=== PATIENT | male | born 1955 | race Caucasian/White ===

== ENCOUNTER 2017-11-27 13:43 | Inpatient (IN) | payer MEDICARE, MEDICAID ==
[2017-11-27 14:44] LABS: ADD MAN DIFF? NO
[2017-11-27 14:46] LABS: ABNORMAL IP MESSAGE 1; EOSINOPHILS % 4.6 % (0.0-7.0); MONOCYTE # 0.3 10^3/ul (0.3-0.9); POSITIVE DIFF @See below
[2017-11-27 14:52] LABS: BASOPHILS % 0.4 % (0.0-2.0); EOSINOPHILS # 0.2 10^3/ul (0.0-0.5); HEMATOCRIT 19.5 % (42.0-52.0); LYMPHOCYTES % 21.5 % (15.0-51.0); MEAN CORPUSCULAR HEMOGLOBIN 30.6 pg (29.0-33.0); MEAN CORPUSCULAR HGB CONC 32.8 g/dl (32.0-37.0); MEAN CORPUSCULAR VOLUME 93.3 fl (82.0-101.0); MEAN PLATELET VOLUME 9.3 fl (7.4-10.4); MONOCYTES % 6.9 % (0.0-11.0); NEUTROPHIL # 3.2 10^3/ul (1.6-7.5); NEUTROPHILS % 66.4 % (39.0-77.0); PLATELET COUNT 187 10^3/UL (140-415); RED BLOOD COUNT 2.09 10^6/ul (4.70-6.10); RED CELL DISTRIBUTION WIDTH 14.2 % (11.5-14.5)
[2017-11-27 14:52] LABS: WHITE BLOOD COUNT 4.8 10^3/ul (4.8-10.8)
[2017-11-27 14:56] LABS: HEMOGLOBIN 6.4 g/dl (14.0-18.0); PATH REVIEW? YES
[2017-11-27 15:19] LABS: INR 1.18; PROTIME 15.2 Sec (11.9-14.9); PT RATIO 1.2
[2017-11-27 15:20] LABS: PARTIAL THROMBOPLASTIN TIME 38.3 Sec (25.0-35.0)
[2017-11-27 15:21] LABS: ALANINE AMINOTRANSFERASE 29 IU/L (13-69); ALBUMIN 3.3 g/dl (3.3-4.9); ALBUMIN/GLOBULIN RATIO 1.06; ALKALINE PHOSPHATASE 67 IU/L (42-121); ANION GAP 23 (8-16); ASPARTATE AMINO TRANSFERASE 19 IU/L (15-46); BLOOD UREA NITROGEN 110 mg/dl (7-20); CALCIUM 6.1 mg/dl (8.4-10.2); CARBON DIOXIDE 11 mmol/L (21-31); CHLORIDE 115 mmol/L (97-110); GLUCOSE 96 mg/dl (70-220); PHOSPHORUS 10.8 mg/dl (2.5-4.9); POTASSIUM 4.6 mmol/L (3.5-5.1); SODIUM 144 mmol/L (135-144); TOTAL PROTEIN 6.4 g/dl (6.1-8.1)
[2017-11-27 15:31] LABS: CREATININE 14.85 mg/dl (0.61-1.24); TROPONIN-I 0.049 ng/ml (0.00-0.12)
[2017-11-27 15:45] LABS: B-TYPE NATRIURETIC PEPTIDE 166000 PG/ML (0-125)
[2017-11-27] MEDS ORDERED: MAGNESIUM HYDROXIDE 30ML CUP PO (17:00)
[2017-11-27] MEDS ORDERED: NACL 0.9% 3 ML SYG IV (17:00)
[2017-11-27] MEDS ORDERED: NITROGLYCERIN (SL) 0.4 MG TAB SL (17:00)
[2017-11-27] MEDS ORDERED: NA PHOSPHATE/BIPHOS 133 ML ENEMA PR (17:00)
[2017-11-27] MEDS ORDERED: ALBUTEROL/IPRATROPIUM (NEB) 3 ML AMP HHN (17:00)
[2017-11-27] MEDS ORDERED: LORAZEPAM 2 MG INJ IV (17:00)
[2017-11-27] MEDS ORDERED: ACETAMINOPHEN 325 MG TAB PO (17:00)
[2017-11-27] MEDS ORDERED: morphine 2 MG INJ IV (17:00)
[2017-11-27] MEDS ORDERED: HYDROCODONE/APAP (5/325) TAB PO (17:00)
[2017-11-27 17:11] LABS: INR 1.16; PT RATIO 1.2
[2017-11-27 17:12] LABS: PARTIAL THROMBOPLASTIN TIME 38.2 Sec (25.0-35.0)
[2017-11-27 17:21] LABS: ANISOCYTOSIS 1+ (0-0); BASOPHILS % (M) 2 % (0-2); BURR CELLS 1+ (0-0); EOSINOPHILS % (M) 7 % (0-7); GIANT THROMBO% (M) 1 % (0-0); LYMPHOCYTES #M 0.7 10^3/ul (0.8-2.9); LYMPHOCYTES % (M) 15 % (15-51); MICROCYTOSIS 1+ (0-0); MONOCYTE #M 0.1 10^3/ul (0.3-0.9); MONOCYTES % (M) 4 % (0-11); PLATELET ESTIMATE NORMAL; POIKILOCYTOSIS 3+ (0-0); SEGMENTED NEUTROPHILS (M) % 72 % (39-77); SMUDGE%M 1 % (0-0)
[2017-11-27 17:33] LABS: IMMEDIATE SPIN CROSSMATCH 1 5
[2017-11-27 17:55] LABS: FREE T4 (FREE THYROXINE) 1.07 ng/dl (0.78-2.44)
[2017-11-27] MEDS: SEVELAMER CARBONATE 0.8 GM PKT PO (18:00)
[2017-11-27 18:34] LABS: IRON 52 ug/dl (35-150)
[2017-11-27 18:44] LABS: % IRON SATURATION 26 % SAT (22-52); TOTAL IRON BINDING CAPACITY 197 ug/dl (241-421)
[2017-11-27] MEDS ORDERED: DEXTROSE 50% 50 ML SYRINGE IV ×2 (19:00)
[2017-11-27] MEDS ORDERED: GLUCOSE GEL 15 GRAM TUBE BUCCAL (19:00)
[2017-11-27] MEDS ORDERED: GLUCAGON 1 MG INJ IM (19:00)
[2017-11-27] MEDS ORDERED: GLUCOSE GEL 15 GRAM TUBE PO ×2 (19:00)
[2017-11-27] MEDS: hydrALAzine 20 MG INJ IV (19:20)
[2017-11-27] MEDS ORDERED: HEPARIN 5,000 UNIT/0.5 ML VIAL SC (21:00)
[2017-11-27] MEDS: INSULIN ASPART [NOVOLOG] 3 ML PEN SC (21:00)
[2017-11-27 23:10] LABS: AADO2 Arterial 10.5 mmHg (7.0-24.0); Allen Test ACCEPTAB; Arterial Base Excess -16.6 mmol/L (-3.0-3); Arterial Blood Gas Oxygen Sat 95.9 mmHG (95.0-98.0); Arterial COHb 0.2 % (0.0-3.0); Arterial Fraction of Oxyhgb 94.9 % (93.0-99.0); Arterial MetHb 0.8 % (0.0-1.5); Arterial Total Hemglobin 7.4 g/dl (12.0-18.0); MODE ROOM AIR; Site Right Radial
[2017-11-28] MEDS: INSULIN ASPART [NOVOLOG] 3 ML PEN SC ×6 (01:00→23:01)
[2017-11-28] MEDS ORDERED: ACCU-CHEK XX (02:00)
[2017-11-28] MEDS: PANTOPRAZOLE (EC) 40 MG TAB PO (05:21)
[2017-11-28 06:11] LABS: ADD MAN DIFF? NO
[2017-11-28 06:16] LABS: BASOPHILS % 0.9 % (0.0-2.0); EOSINOPHILS # 0.3 10^3/ul (0.0-0.5); EOSINOPHILS % 6.8 % (0.0-7.0); HEMOGLOBIN 7.1 g/dl (14.0-18.0); LYMPHOCYTES # 0.9 10^3/ul (0.8-2.9); LYMPHOCYTES % 20.5 % (15.0-51.0); MEAN CORPUSCULAR HGB CONC 33.8 g/dl (32.0-37.0); MEAN CORPUSCULAR VOLUME 91.7 fl (82.0-101.0); MEAN PLATELET VOLUME 9.1 fl (7.4-10.4); MONOCYTE # 0.4 10^3/ul (0.3-0.9); MONOCYTES % 7.9 % (0.0-11.0); NEUTROPHIL # 2.9 10^3/ul (1.6-7.5); NEUTROPHILS % 63.5 % (39.0-77.0); PLATELET COUNT 169 10^3/UL (140-415); RED BLOOD COUNT 2.29 10^6/ul (4.70-6.10); RED CELL DISTRIBUTION WIDTH 14.5 % (11.5-14.5)
[2017-11-28 06:16] LABS: WHITE BLOOD COUNT 4.6 10^3/ul (4.8-10.8)
[2017-11-28 06:39] LABS: CHOLESTEROL 109 mg/dl (100-200)
[2017-11-28 06:39] LABS: ANION GAP 24 (8-16); BLOOD UREA NITROGEN 110 mg/dl (7-20); CALCIUM 6.2 mg/dl (8.4-10.2); CHLORIDE 117 mmol/L (97-110); CHOL/HDL RATIO 2.5 RATIO; GLUCOSE 77 mg/dl (70-220); HDL CHOLESTEROL 42 mg/dl (30-78); LDL CHOLESTEROL,CALCULATED 37 mg/dl; MAGNESIUM 1.9 mg/dl (1.7-2.5); PHOSPHORUS 11.3 mg/dl (2.5-4.9); POTASSIUM 4.6 mmol/L (3.5-5.1); SODIUM 145 mmol/L (135-144); TRIGLYCERIDES 149 mg/dl (0-149)
[2017-11-28 06:43] LABS: CARBON DIOXIDE 9 mmol/L (21-31)
[2017-11-28] MEDS ORDERED: NA BICARBONATE 8.4% 50 ML SYG (07:04)
[2017-11-28 07:09] LABS: HEMOGLOBIN A1C 5.5 % (0-5.9)
[2017-11-28 07:14] LABS: COMPLEMENT C3 72 mg/dl (88-165); COMPLEMENT C4 24 mg/dl (14-44)
[2017-11-28] MEDS: NA BICARBONATE 8.4% 50 ML SYG IV (07:16)
[2017-11-28 07:37] LABS: HEPATITIS B SURFACE ANTIGEN NEGATIVE (NEGATIVE)
[2017-11-28 07:54] LABS: HEPATITIS C VIRAL ANTIBODY NEGATIVE (NEGATIVE)
[2017-11-28] MEDS: CEFAZOLIN 1 GM/50 ML (PMX) 50 ML IVPB (09:10)
[2017-11-28] MEDS: SOD CHLORIDE 0.9% 500 ML (09:12)
[2017-11-28] MEDS: LIDOCAINE 1% (MDV) 10 ML INJ (09:15)
[2017-11-28] MEDS: HEPARIN 1000 UNITS/ML 10 ML INJ (09:15)
[2017-11-28] MEDS: NIFEdipine (XL) 30 MG TAB PO (17:30)
[2017-11-28] MEDS ORDERED: NIFEdipine (XL) 30 MG TAB PO (17:30)
[2017-11-28] MEDS: hydrALAzine 20 MG INJ IV (18:21)
[2017-11-28] MEDS: HEPARIN 1000 UNITS/ML 10 ML INJ CATHETER (18:34)
[2017-11-28] MEDS: SEVELAMER CARBONATE 0.8 GM PKT PO ×3 (22:47→22:48)
[2017-11-28] MEDS: CALCITRIOL 0.25 MCG CAP PO (22:47)
[2017-11-28 23:38] LABS: ADD UMIC YES; UR ASCORBIC ACID NEGATIVE (NEGATIVE); UR BACTERIA FEW /HPF (NONE SEEN); UR BILIRUBIN (Dip) NEGATIVE (NEGATIVE); UR BLOOD (Dip) 1+ mg/dL (NEGATIVE); UR CLARITY CLEAR (CLEAR); UR COLOR STRAW (YELLOW); UR GLUCOSE (Dip) 1+ mg/dL (NEGATIVE); UR KETONES (Dip) TRACE mg/dL (NEGATIVE); UR LEUKOCYTE ESTERASE (Dip) NEGATIVE Leu/ul (NEGATIVE); UR NITRITE (Dip) NEGATIVE (NEGATIVE); UR RBC 1 /HPF (0-5); UR TOTAL PROTEIN (Dip) 3+ mg/dl (NEGATIVE); UR UROBILINOGEN (Dip) NEGATIVE (NEGATIVE); UR WBC 5 /HPF (0-5)
[2017-11-28 23:41] LABS: CREATININE,URINE RANDOM 63.33 mg/dl (20-370)
[2017-11-28 23:57] LABS: PROTEIN/CREAT RATIO 8.95 RATIO
[2017-11-29] MEDS: INSULIN ASPART [NOVOLOG] 3 ML PEN SC ×6 (02:11→20:49)
[2017-11-29] MEDS ORDERED: GLUCOSE GEL 15 GRAM TUBE PO ×2 (05:30)
[2017-11-29] MEDS ORDERED: DEXTROSE 50% 50 ML SYRINGE IV ×2 (05:30)
[2017-11-29] MEDS ORDERED: GLUCAGON 1 MG INJ IM (05:30)
[2017-11-29] MEDS ORDERED: GLUCOSE GEL 15 GRAM TUBE BUCCAL (05:30)
[2017-11-29] MEDS: PANTOPRAZOLE (EC) 40 MG TAB PO (06:38)
[2017-11-29] MEDS: ONDANSETRON 4 MG INJ IV (06:44)
[2017-11-29 08:27] LABS: ADD MAN DIFF? NO
[2017-11-29 08:29] LABS: BASOPHILS % 0.7 % (0.0-2.0); EOSINOPHILS # 0.1 10^3/ul (0.0-0.5); EOSINOPHILS % 3.3 % (0.0-7.0); HEMATOCRIT 22.9 % (42.0-52.0); HEMOGLOBIN 7.8 g/dl (14.0-18.0); LYMPHOCYTES # 0.8 10^3/ul (0.8-2.9); LYMPHOCYTES % 19.1 % (15.0-51.0); MEAN CORPUSCULAR HEMOGLOBIN 30.2 pg (29.0-33.0); MEAN CORPUSCULAR HGB CONC 34.1 g/dl (32.0-37.0); MEAN CORPUSCULAR VOLUME 88.8 fl (82.0-101.0); MEAN PLATELET VOLUME 9.8 fl (7.4-10.4); MONOCYTE # 0.4 10^3/ul (0.3-0.9); MONOCYTES % 9.6 % (0.0-11.0); NEUTROPHIL # 2.9 10^3/ul (1.6-7.5); NEUTROPHILS % 67.1 % (39.0-77.0); PLATELET COUNT 164 10^3/UL (140-415); RED BLOOD COUNT 2.58 10^6/ul (4.70-6.10); RED CELL DISTRIBUTION WIDTH 14.9 % (11.5-14.5)
[2017-11-29 08:29] LABS: WHITE BLOOD COUNT 4.3 10^3/ul (4.8-10.8)
[2017-11-29] MEDS: CALCITRIOL 0.25 MCG CAP PO (08:32)
[2017-11-29] MEDS: SEVELAMER CARBONATE 0.8 GM PKT PO ×3 (08:32→18:12)
[2017-11-29] MEDS: VALSARTAN 160 MG TAB PO (08:33)
[2017-11-29] MEDS: NIFEdipine (XL) 30 MG TAB PO ×2 (08:33→20:45)
[2017-11-29 08:53] LABS: ANION GAP 19 (8-16); BLOOD UREA NITROGEN 68 mg/dl (7-20); CALCIUM 6.9 mg/dl (8.4-10.2); CARBON DIOXIDE 20 mmol/L (21-31); CHLORIDE 111 mmol/L (97-110); CREATININE 9.79 mg/dl (0.61-1.24); GLUCOSE 84 mg/dl (70-220); POTASSIUM 4.1 mmol/L (3.5-5.1); SODIUM 146 mmol/L (135-144)
[2017-11-29 12:17] LABS: MYELOPEROXIDASE ANTIBODY <1.0 AI; PROTEINASE-3 ANTIBODY <1.0 AI
[2017-11-29 13:03] LABS: ANA SCREEN NEGATIVE (NEGATIVE)
[2017-11-29 16:38] LABS: HEPATITIS B SURFACE ANTIBODY NEGATIVE (NEGATIVE)
[2017-11-29] MEDS: EPOETIN 10000 UNITS/1 ML INJ (ESRD) SC (18:13)
[2017-11-29] MEDS: HEPARIN 1000 UNITS/ML 10 ML INJ CATHETER (19:53)
[2017-11-29 22:47] LABS: COMPLEMENT, TOTAL (CH50) 57 U/mL (31-60)
[2017-11-30] MEDS: PANTOPRAZOLE (EC) 40 MG TAB PO (06:24)
[2017-11-30 07:13] LABS: ADD MAN DIFF? NO
[2017-11-30 07:16] LABS: WHITE BLOOD COUNT 3.6 10^3/ul (4.8-10.8)
[2017-11-30 07:16] LABS: BASOPHILS % 0.6 % (0.0-2.0); EOSINOPHILS # 0.2 10^3/ul (0.0-0.5); EOSINOPHILS % 5.3 % (0.0-7.0); HEMATOCRIT 21.9 % (42.0-52.0); HEMOGLOBIN 7.2 g/dl (14.0-18.0); LYMPHOCYTES % 27.3 % (15.0-51.0); MEAN CORPUSCULAR HEMOGLOBIN 29.8 pg (29.0-33.0); MEAN CORPUSCULAR HGB CONC 32.9 g/dl (32.0-37.0); MEAN CORPUSCULAR VOLUME 90.5 fl (82.0-101.0); MEAN PLATELET VOLUME 10.1 fl (7.4-10.4); MONOCYTE # 0.5 10^3/ul (0.3-0.9); MONOCYTES % 14.8 % (0.0-11.0); NEUTROPHIL # 1.9 10^3/ul (1.6-7.5); PLATELET COUNT 145 10^3/UL (140-415); RED BLOOD COUNT 2.42 10^6/ul (4.70-6.10); RED CELL DISTRIBUTION WIDTH 14.3 % (11.5-14.5)
[2017-11-30 07:37] LABS: ANION GAP 15 (8-16); BLOOD UREA NITROGEN 35 mg/dl (7-20); CALCIUM 7.2 mg/dl (8.4-10.2); CARBON DIOXIDE 27 mmol/L (21-31); CHLORIDE 106 mmol/L (97-110); CREATININE 5.83 mg/dl (0.61-1.24); GLUCOSE 93 mg/dl (70-220); POTASSIUM 3.9 mmol/L (3.5-5.1); SODIUM 144 mmol/L (135-144)
[2017-11-30 07:50] LABS: PHOSPHORUS 4.6 mg/dl (2.5-4.9)
[2017-11-30] MEDS: INSULIN ASPART [NOVOLOG] 3 ML PEN SC ×4 (07:55→21:00)
[2017-11-30] MEDS: SEVELAMER CARBONATE 0.8 GM PKT PO ×3 (08:25→18:34)
[2017-11-30] MEDS: CALCITRIOL 0.25 MCG CAP PO (08:25)
[2017-11-30] MEDS: VALSARTAN 160 MG TAB PO (08:26)
[2017-11-30] MEDS: NIFEdipine (XL) 30 MG TAB PO ×2 (08:27→21:00)
[2017-11-30] MEDS: MULTIVIT/CA CARB/B CMPLX/FA TAB PO (09:18)
[2017-11-30] MEDS ORDERED: CEFAZOLIN 2 GM/50 ML (PMX) 50 ML IVPB (10:13)
[2017-11-30] MEDS ORDERED: LIDOCAINE 1% (MDV) 20 ML INJ (10:14)
[2017-11-30] MEDS ORDERED: HEPARIN 1000 UNITS/ML 10 ML INJ (10:14)
[2017-11-30] MEDS ORDERED: SOD CHLORIDE 0.9% 500 ML (10:14)
[2017-11-30 13:32] LABS: ANCA SCREEN C-ANCA POS (NEGATIVE)
[2017-12-01 00:14] LABS: IMMEDIATE SPIN CROSSMATCH 1 1
[2017-12-01] MEDS: HEPARIN 1000 UNITS/ML 10 ML INJ CATHETER (01:53)
[2017-12-01] MEDS: PANTOPRAZOLE (EC) 40 MG TAB PO (05:52)
[2017-12-01] MEDS: INSULIN ASPART [NOVOLOG] 3 ML PEN SC ×4 (07:55→20:33)
[2017-12-01 07:56] LABS: ADD MAN DIFF? NO
[2017-12-01 08:06] LABS: WHITE BLOOD COUNT 4.7 10^3/ul (4.8-10.8)
[2017-12-01 08:06] LABS: BASOPHILS % 0.6 % (0.0-2.0); EOSINOPHILS # 0.3 10^3/ul (0.0-0.5); EOSINOPHILS % 5.3 % (0.0-7.0); HEMATOCRIT 23.9 % (42.0-52.0); HEMOGLOBIN 7.9 g/dl (14.0-18.0); LYMPHOCYTES # 1.2 10^3/ul (0.8-2.9); LYMPHOCYTES % 25.7 % (15.0-51.0); MEAN CORPUSCULAR HEMOGLOBIN 29.8 pg (29.0-33.0); MEAN CORPUSCULAR HGB CONC 33.1 g/dl (32.0-37.0); MEAN CORPUSCULAR VOLUME 90.2 fl (82.0-101.0); MEAN PLATELET VOLUME 9.9 fl (7.4-10.4); MONOCYTE # 0.6 10^3/ul (0.3-0.9); NEUTROPHIL # 2.6 10^3/ul (1.6-7.5); NEUTROPHILS % 55.2 % (39.0-77.0); PLATELET COUNT 138 10^3/UL (140-415); RED BLOOD COUNT 2.65 10^6/ul (4.70-6.10)
[2017-12-01] MEDS: SEVELAMER CARBONATE 0.8 GM PKT PO ×3 (08:06→17:22)
[2017-12-01] MEDS: VALSARTAN 160 MG TAB PO (08:06)
[2017-12-01] MEDS: CALCITRIOL 0.25 MCG CAP PO (08:07)
[2017-12-01] MEDS: MULTIVIT/CA CARB/B CMPLX/FA TAB PO (08:07)
[2017-12-01] MEDS: NIFEdipine (XL) 30 MG TAB PO ×2 (08:07→20:35)
[2017-12-01 08:27] LABS: ANION GAP 12 (8-16); BLOOD UREA NITROGEN 24 mg/dl (7-20); CALCIUM 7.8 mg/dl (8.4-10.2); CARBON DIOXIDE 29 mmol/L (21-31); CHLORIDE 105 mmol/L (97-110); CREATININE 4.27 mg/dl (0.61-1.24); GLUCOSE 100 mg/dl (70-220); IRON 32 ug/dl (35-150); POTASSIUM 3.6 mmol/L (3.5-5.1); SODIUM 142 mmol/L (135-144)
[2017-12-01 08:30] LABS: PHOSPHORUS 3.4 mg/dl (2.5-4.9)
[2017-12-01 08:36] LABS: % IRON SATURATION 19 % SAT (22-52); TOTAL IRON BINDING CAPACITY 172 ug/dl (241-421)
[2017-12-01] MEDS: DOCUSATE SODIUM 100 MG CAP PO (10:45)
[2017-12-01] MEDS: EPOETIN 10000 UNITS/1 ML INJ (ESRD) SC (17:21)
[2017-12-01] MEDS: SOD FERRIC GLUC COMPLX 125 MG in SOD CHLORIDE 0.9% 100 ML IVPB (17:30)
[2017-12-02 06:35] LABS: ADD MAN DIFF? NO
[2017-12-02 06:40] LABS: BASOPHILS % 0.6 % (0.0-2.0); EOSINOPHILS # 0.3 10^3/ul (0.0-0.5); EOSINOPHILS % 5.8 % (0.0-7.0); HEMATOCRIT 22.7 % (42.0-52.0); HEMOGLOBIN 7.6 g/dl (14.0-18.0); LYMPHOCYTES # 1.3 10^3/ul (0.8-2.9); LYMPHOCYTES % 25.2 % (15.0-51.0); MEAN CORPUSCULAR HEMOGLOBIN 30.5 pg (29.0-33.0); MEAN CORPUSCULAR HGB CONC 33.5 g/dl (32.0-37.0); MEAN CORPUSCULAR VOLUME 91.2 fl (82.0-101.0); MEAN PLATELET VOLUME 9.5 fl (7.4-10.4); MONOCYTE # 0.6 10^3/ul (0.3-0.9); MONOCYTES % 12.9 % (0.0-11.0); NEUTROPHIL # 2.7 10^3/ul (1.6-7.5); NEUTROPHILS % 55.1 % (39.0-77.0); PLATELET COUNT 136 10^3/UL (140-415); RED BLOOD COUNT 2.49 10^6/ul (4.70-6.10); RED CELL DISTRIBUTION WIDTH 13.9 % (11.5-14.5)
[2017-12-02] MEDS: PANTOPRAZOLE (EC) 40 MG TAB PO (06:54)
[2017-12-02 06:59] LABS: ALANINE AMINOTRANSFERASE 17 IU/L (13-69); ALBUMIN 2.6 g/dl (3.3-4.9); ALBUMIN/GLOBULIN RATIO 0.96; ALKALINE PHOSPHATASE 56 IU/L (42-121); ANION GAP 12 (8-16); ASPARTATE AMINO TRANSFERASE 15 IU/L (15-46); BILIRUBIN,INDIRECT 0.1 mg/dl (0-1.1); BILIRUBIN,TOTAL 0.1 mg/dl (0.2-1.3); BLOOD UREA NITROGEN 31 mg/dl (7-20); CALCIUM 7.3 mg/dl (8.4-10.2); CARBON DIOXIDE 28 mmol/L (21-31); CHLORIDE 105 mmol/L (97-110); CREATININE 5.33 mg/dl (0.61-1.24); GLUCOSE 88 mg/dl (70-220); POTASSIUM 3.9 mmol/L (3.5-5.1); SODIUM 141 mmol/L (135-144); TOTAL PROTEIN 5.3 g/dl (6.1-8.1)
[2017-12-02] MEDS: INSULIN ASPART [NOVOLOG] 3 ML PEN SC ×4 (07:55→21:00)
[2017-12-02] MEDS: SEVELAMER CARBONATE 0.8 GM PKT PO ×3 (08:14→17:34)
[2017-12-02] MEDS: CALCITRIOL 0.25 MCG CAP PO (08:36)
[2017-12-02] MEDS: MULTIVIT/CA CARB/B CMPLX/FA TAB PO (08:36)
[2017-12-02] MEDS: NIFEdipine (XL) 30 MG TAB PO ×2 (08:37→21:12)
[2017-12-02] MEDS: VALSARTAN 160 MG TAB PO (09:00)
[2017-12-02] MEDS: HEPARIN 1000 UNITS/ML 10 ML INJ CATHETER (17:23)
[2017-12-02] MEDS: MAGNESIUM CITRATE 300 ML BTL PO ×2 (17:30→18:39)
[2017-12-02] MEDS: SOD FERRIC GLUC COMPLX 125 MG in SOD CHLORIDE 0.9% 100 ML IVPB (17:34)
[2017-12-02] MEDS: BISACODYL (EC) 5 MG TAB PO (17:35)
[2017-12-02] MEDS: POLYETHYLENE GLYCOL 3350 119 GM POWDER PO (17:37)
[2017-12-03] MEDS: PANTOPRAZOLE (EC) 40 MG TAB PO (06:17)
[2017-12-03] MEDS: POLYETHYLENE GLYCOL 3350 119 GM POWDER PO (06:18)
[2017-12-03 06:53] LABS: ADD MAN DIFF? NO
[2017-12-03 06:58] LABS: WHITE BLOOD COUNT 5.1 10^3/ul (4.8-10.8)
[2017-12-03 06:58] LABS: BASOPHILS % 0.6 % (0.0-2.0); EOSINOPHILS # 0.3 10^3/ul (0.0-0.5); EOSINOPHILS % 5.7 % (0.0-7.0); HEMATOCRIT 22.9 % (42.0-52.0); HEMOGLOBIN 7.5 g/dl (14.0-18.0); LYMPHOCYTES # 1.1 10^3/ul (0.8-2.9); LYMPHOCYTES % 21.6 % (15.0-51.0); MEAN CORPUSCULAR HEMOGLOBIN 30.2 pg (29.0-33.0); MEAN CORPUSCULAR HGB CONC 32.8 g/dl (32.0-37.0); MEAN CORPUSCULAR VOLUME 92.3 fl (82.0-101.0); MEAN PLATELET VOLUME 9.9 fl (7.4-10.4); MONOCYTE # 0.6 10^3/ul (0.3-0.9); MONOCYTES % 12.5 % (0.0-11.0); NEUTROPHILS % 59.4 % (39.0-77.0); PLATELET COUNT 154 10^3/UL (140-415); RED BLOOD COUNT 2.48 10^6/ul (4.70-6.10); RED CELL DISTRIBUTION WIDTH 14.1 % (11.5-14.5)
[2017-12-03 07:21] LABS: ALANINE AMINOTRANSFERASE 17 IU/L (13-69); ALBUMIN 2.7 g/dl (3.3-4.9); ALKALINE PHOSPHATASE 62 IU/L (42-121); ANION GAP 13 (8-16); ASPARTATE AMINO TRANSFERASE 15 IU/L (15-46); BLOOD UREA NITROGEN 21 mg/dl (7-20); CALCIUM 7.5 mg/dl (8.4-10.2); CARBON DIOXIDE 27 mmol/L (21-31); CHLORIDE 107 mmol/L (97-110); CREATININE 4.14 mg/dl (0.61-1.24); GLUCOSE 79 mg/dl (70-220); POTASSIUM 4.1 mmol/L (3.5-5.1); SODIUM 143 mmol/L (135-144); TOTAL PROTEIN 5.4 g/dl (6.1-8.1)
[2017-12-03] MEDS: INSULIN ASPART [NOVOLOG] 3 ML PEN SC ×4 (07:55→21:00)
[2017-12-03] MEDS: BISACODYL (EC) 5 MG TAB PO (08:12)
[2017-12-03] MEDS: NIFEdipine (XL) 30 MG TAB PO (08:12)
[2017-12-03] MEDS: SEVELAMER CARBONATE 0.8 GM PKT PO ×3 (08:12→17:55)
[2017-12-03] MEDS: MULTIVIT/CA CARB/B CMPLX/FA TAB PO (08:13)
[2017-12-03] MEDS: VALSARTAN 160 MG TAB PO ×2 (08:13→09:52)
[2017-12-03] MEDS: CALCITRIOL 0.25 MCG CAP PO (08:13)
[2017-12-03] MEDS ORDERED: VALSARTAN 160 MG TAB PO (09:07)
[2017-12-03] MEDS ORDERED: NIFEdipine (XL) 90 MG TAB PO (09:08)
[2017-12-03] MEDS: NIFEdipine (XL) 60 MG TAB PO (09:52)
[2017-12-03] MEDS ORDERED: EPHEDrine SULFATE 50 MG/5 ML SYG (18:58)
[2017-12-03] MEDS: LIDOCAINE 2% (SDV) 5 ML INJ (19:12)
[2017-12-03] MEDS: PROPOFOL 60 ML (19:13)
[2017-12-03] MEDS: EPHEDrine SULFATE 50 MG/5 ML SYG IV (19:33)
[2017-12-03] MEDS: SOD FERRIC GLUC COMPLX 125 MG in SOD CHLORIDE 0.9% 100 ML IVPB (22:13)
[2017-12-04 05:37] LABS: ADD MAN DIFF? NO
[2017-12-04 05:47] LABS: BASOPHILS % 0.9 % (0.0-2.0); EOSINOPHILS # 0.3 10^3/ul (0.0-0.5); HEMATOCRIT 24.4 % (42.0-52.0); LYMPHOCYTES # 0.8 10^3/ul (0.8-2.9); MEAN CORPUSCULAR HEMOGLOBIN 30.4 pg (29.0-33.0); MEAN CORPUSCULAR HGB CONC 32.8 g/dl (32.0-37.0); MEAN CORPUSCULAR VOLUME 92.8 fl (82.0-101.0); MEAN PLATELET VOLUME 9.3 fl (7.4-10.4); MONOCYTE # 0.4 10^3/ul (0.3-0.9); MONOCYTES % 9.5 % (0.0-11.0); NEUTROPHIL # 2.8 10^3/ul (1.6-7.5); NEUTROPHILS % 64.4 % (39.0-77.0); PLATELET COUNT 175 10^3/UL (140-415); RED BLOOD COUNT 2.63 10^6/ul (4.70-6.10); RED CELL DISTRIBUTION WIDTH 13.9 % (11.5-14.5)
[2017-12-04 05:47] LABS: WHITE BLOOD COUNT 4.3 10^3/ul (4.8-10.8)
[2017-12-04] MEDS: PANTOPRAZOLE (EC) 40 MG TAB PO (06:15)
[2017-12-04 07:00] LABS: ANION GAP 13 (8-16); BLOOD UREA NITROGEN 27 mg/dl (7-20); CALCIUM 7.5 mg/dl (8.4-10.2); CARBON DIOXIDE 25 mmol/L (21-31); CHLORIDE 109 mmol/L (97-110); GLUCOSE 116 mg/dl (70-220); SODIUM 143 mmol/L (135-144)
[2017-12-04] MEDS: INSULIN ASPART [NOVOLOG] 3 ML PEN SC ×4 (08:15→21:00)
[2017-12-04] MEDS: MULTIVIT/CA CARB/B CMPLX/FA TAB PO (09:20)
[2017-12-04] MEDS: VALSARTAN 160 MG TAB PO (09:20)
[2017-12-04] MEDS: NIFEdipine (XL) 90 MG TAB PO (09:21)
[2017-12-04] MEDS: SEVELAMER CARBONATE 0.8 GM PKT PO ×3 (09:21→18:28)
[2017-12-04] MEDS: CALCITRIOL 0.25 MCG CAP PO (09:21)
[2017-12-04] MEDS ORDERED: WARFARIN 5 MG TAB PO (17:00)
[2017-12-04] MEDS: HEPARIN 1000 UNITS/ML 10 ML INJ CATHETER (17:51)
[2017-12-04] MEDS: EPOETIN 10000 UNITS/1 ML INJ (ESRD) SC (18:29)
[2017-12-04] MEDS: FERROUS SULFATE (EC) 325 MG TAB PO (21:17)
[2017-12-05 05:57] LABS: ADD MAN DIFF? NO
[2017-12-05] MEDS: PANTOPRAZOLE (EC) 40 MG TAB PO (05:58)
[2017-12-05 06:06] LABS: WHITE BLOOD COUNT 4.5 10^3/ul (4.8-10.8)
[2017-12-05 06:06] LABS: BASOPHILS % 0.9 % (0.0-2.0); EOSINOPHILS # 0.3 10^3/ul (0.0-0.5); EOSINOPHILS % 5.5 % (0.0-7.0); HEMATOCRIT 23.2 % (42.0-52.0); HEMOGLOBIN 7.6 g/dl (14.0-18.0); LYMPHOCYTES # 1.2 10^3/ul (0.8-2.9); LYMPHOCYTES % 26.8 % (15.0-51.0); MEAN CORPUSCULAR HEMOGLOBIN 30.3 pg (29.0-33.0); MEAN CORPUSCULAR HGB CONC 32.8 g/dl (32.0-37.0); MEAN CORPUSCULAR VOLUME 92.4 fl (82.0-101.0); MEAN PLATELET VOLUME 9.7 fl (7.4-10.4); MONOCYTE # 0.6 10^3/ul (0.3-0.9); MONOCYTES % 12.4 % (0.0-11.0); NEUTROPHIL # 2.4 10^3/ul (1.6-7.5); NEUTROPHILS % 54.2 % (39.0-77.0); PLATELET COUNT 191 10^3/UL (140-415); RED BLOOD COUNT 2.51 10^6/ul (4.70-6.10); RED CELL DISTRIBUTION WIDTH 13.9 % (11.5-14.5)
[2017-12-05 06:09] LABS: ANION GAP 12 (8-16); BLOOD UREA NITROGEN 22 mg/dl (7-20); CALCIUM 7.5 mg/dl (8.4-10.2); CARBON DIOXIDE 29 mmol/L (21-31); CHLORIDE 104 mmol/L (97-110); CREATININE 4.13 mg/dl (0.61-1.24); GLUCOSE 90 mg/dl (70-220); SODIUM 141 mmol/L (135-144)
[2017-12-05] MEDS: INSULIN ASPART [NOVOLOG] 3 ML PEN SC ×4 (08:01→21:00)
[2017-12-05] MEDS: SEVELAMER CARBONATE 0.8 GM PKT PO ×3 (08:12→17:46)
[2017-12-05] MEDS: FERROUS SULFATE (EC) 325 MG TAB PO ×2 (08:12→21:22)
[2017-12-05] MEDS: FAMOTIDINE 20 MG TAB PO (08:12)
[2017-12-05] MEDS: MULTIVIT/CA CARB/B CMPLX/FA TAB PO (08:12)
[2017-12-05] MEDS: CALCITRIOL 0.25 MCG CAP PO (08:12)
[2017-12-05] MEDS: VALSARTAN 160 MG TAB PO (08:14)
[2017-12-05] MEDS: NIFEdipine (XL) 90 MG TAB PO (08:14)
[2017-12-05] MEDS ORDERED: MULTIVIT/CA CARB/B CMPLX/FA TAB PO (09:00)
[2017-12-05 21:08] LABS: PTH CALCIUM 7.3 mg/dL (8.6-10.3)
[2017-12-06] MEDS: PANTOPRAZOLE (EC) 40 MG TAB PO (05:16)
[2017-12-06 07:02] LABS: ADD MAN DIFF? NO
[2017-12-06 07:11] LABS: BASOPHILS % 0.6 % (0.0-2.0); EOSINOPHILS # 0.3 10^3/ul (0.0-0.5); EOSINOPHILS % 5.3 % (0.0-7.0); HEMATOCRIT 23.2 % (42.0-52.0); HEMOGLOBIN 7.5 g/dl (14.0-18.0); LYMPHOCYTES # 1.3 10^3/ul (0.8-2.9); LYMPHOCYTES % 25.4 % (15.0-51.0); MEAN CORPUSCULAR HEMOGLOBIN 30.2 pg (29.0-33.0); MEAN CORPUSCULAR HGB CONC 32.3 g/dl (32.0-37.0); MEAN CORPUSCULAR VOLUME 93.5 fl (82.0-101.0); MEAN PLATELET VOLUME 9.2 fl (7.4-10.4); MONOCYTE # 0.7 10^3/ul (0.3-0.9); MONOCYTES % 13.2 % (0.0-11.0); NEUTROPHIL # 2.7 10^3/ul (1.6-7.5); NEUTROPHILS % 55.3 % (39.0-77.0); PLATELET COUNT 190 10^3/UL (140-415); RED BLOOD COUNT 2.48 10^6/ul (4.70-6.10); RED CELL DISTRIBUTION WIDTH 14.1 % (11.5-14.5)
[2017-12-06 07:11] LABS: WHITE BLOOD COUNT 4.9 10^3/ul (4.8-10.8)
[2017-12-06 07:44] LABS: ANION GAP 14 (8-16); BLOOD UREA NITROGEN 37 mg/dl (7-20); CALCIUM 7.4 mg/dl (8.4-10.2); CARBON DIOXIDE 26 mmol/L (21-31); CHLORIDE 104 mmol/L (97-110); CREATININE 5.13 mg/dl (0.61-1.24); GLUCOSE 78 mg/dl (70-220); POTASSIUM 4.5 mmol/L (3.5-5.1); SODIUM 139 mmol/L (135-144)
[2017-12-06] MEDS: INSULIN ASPART [NOVOLOG] 3 ML PEN SC ×4 (08:15→21:00)
[2017-12-06] MEDS: SEVELAMER CARBONATE 0.8 GM PKT PO ×3 (08:15→18:39)
[2017-12-06 08:20] LABS: PTH INTACT 155 pg/mL (14-64)
[2017-12-06] MEDS: MULTIVIT/CA CARB/B CMPLX/FA TAB PO (08:43)
[2017-12-06] MEDS: CALCITRIOL 0.25 MCG CAP PO (08:43)
[2017-12-06] MEDS: FAMOTIDINE 20 MG TAB PO (08:44)
[2017-12-06] MEDS: FERROUS SULFATE (EC) 325 MG TAB PO ×2 (08:44→21:11)
[2017-12-06] MEDS: BARIUM SULFATE 135 ML (E-Z HD) PO ×2 (09:08→12:41)
[2017-12-06] MEDS: NIFEdipine (XL) 90 MG TAB PO (09:35)
[2017-12-06] MEDS: VALSARTAN 160 MG TAB PO (09:36)
[2017-12-06] MEDS: EPOETIN 10000 UNITS/1 ML INJ (ESRD) SC (18:40)
[2017-12-06] MEDS: HEPARIN 1000 UNITS/ML 10 ML INJ CATHETER (20:18)
[2017-12-07] MEDS: PANTOPRAZOLE (EC) 40 MG TAB PO (05:39)
[2017-12-07 06:15] LABS: ADD MAN DIFF? NO
[2017-12-07 06:25] LABS: BASOPHILS % 0.9 % (0.0-2.0); EOSINOPHILS # 0.2 10^3/ul (0.0-0.5); EOSINOPHILS % 4.7 % (0.0-7.0); HEMATOCRIT 22.4 % (42.0-52.0); HEMOGLOBIN 7.4 g/dl (14.0-18.0); LYMPHOCYTES # 1.3 10^3/ul (0.8-2.9); LYMPHOCYTES % 29.4 % (15.0-51.0); MEAN CORPUSCULAR HEMOGLOBIN 30.8 pg (29.0-33.0); MEAN CORPUSCULAR VOLUME 93.3 fl (82.0-101.0); MEAN PLATELET VOLUME 9.3 fl (7.4-10.4); MONOCYTE # 0.6 10^3/ul (0.3-0.9); MONOCYTES % 13.9 % (0.0-11.0); NEUTROPHIL # 2.2 10^3/ul (1.6-7.5); NEUTROPHILS % 50.9 % (39.0-77.0); PLATELET COUNT 177 10^3/UL (140-415)
[2017-12-07 06:25] LABS: WHITE BLOOD COUNT 4.3 10^3/ul (4.8-10.8)
[2017-12-07 06:52] LABS: ANION GAP 12 (8-16); BLOOD UREA NITROGEN 26 mg/dl (7-20); CALCIUM 7.4 mg/dl (8.4-10.2); CARBON DIOXIDE 30 mmol/L (21-31); CHLORIDE 102 mmol/L (97-110); CREATININE 3.54 mg/dl (0.61-1.24); GLUCOSE 85 mg/dl (70-220); POTASSIUM 4.2 mmol/L (3.5-5.1); SODIUM 140 mmol/L (135-144)
[2017-12-07] MEDS: INSULIN ASPART [NOVOLOG] 3 ML PEN SC ×4 (08:15→20:29)
[2017-12-07] MEDS: SEVELAMER CARBONATE 0.8 GM PKT PO ×3 (08:18→17:08)
[2017-12-07] MEDS: CALCITRIOL 0.25 MCG CAP PO (08:56)
[2017-12-07] MEDS: MULTIVIT/CA CARB/B CMPLX/FA TAB PO (08:56)
[2017-12-07] MEDS: VALSARTAN 160 MG TAB PO (08:57)
[2017-12-07] MEDS: FERROUS SULFATE (EC) 325 MG TAB PO ×2 (08:58→20:28)
[2017-12-07] MEDS: NIFEdipine (XL) 90 MG TAB PO (08:58)
[2017-12-07] MEDS: FAMOTIDINE 20 MG TAB PO (08:58)
[2017-12-07] MEDS: MINOXIDIL 2.5 MG TAB PO ×2 (08:59→20:28)
[2017-12-08] MEDS: PANTOPRAZOLE (EC) 40 MG TAB PO (06:15)
[2017-12-08 06:23] LABS: ADD MAN DIFF? NO
[2017-12-08 06:31] LABS: BASOPHIL # 0.1 10^3/ul (0.0-0.1); BASOPHILS % 1.2 % (0.0-2.0); EOSINOPHILS # 0.3 10^3/ul (0.0-0.5); EOSINOPHILS % 5.8 % (0.0-7.0); HEMATOCRIT 23.3 % (42.0-52.0); HEMOGLOBIN 7.6 g/dl (14.0-18.0); LYMPHOCYTES # 1.3 10^3/ul (0.8-2.9); MEAN CORPUSCULAR HEMOGLOBIN 30.6 pg (29.0-33.0); MEAN CORPUSCULAR HGB CONC 32.6 g/dl (32.0-37.0); MEAN PLATELET VOLUME 9.3 fl (7.4-10.4); MONOCYTE # 0.6 10^3/ul (0.3-0.9); MONOCYTES % 14.8 % (0.0-11.0); NEUTROPHILS % 47.2 % (39.0-77.0); PLATELET COUNT 183 10^3/UL (140-415); RED BLOOD COUNT 2.48 10^6/ul (4.70-6.10); RED CELL DISTRIBUTION WIDTH 14.2 % (11.5-14.5)
[2017-12-08 06:31] LABS: WHITE BLOOD COUNT 4.3 10^3/ul (4.8-10.8)
[2017-12-08 07:01] LABS: ANION GAP 12 (8-16); BLOOD UREA NITROGEN 35 mg/dl (7-20); CALCIUM 7.6 mg/dl (8.4-10.2); CARBON DIOXIDE 30 mmol/L (21-31); CHLORIDE 102 mmol/L (97-110); CREATININE 5.11 mg/dl (0.61-1.24); GLUCOSE 96 mg/dl (70-220); PHOSPHORUS 3.2 mg/dl (2.5-4.9); POTASSIUM 4.4 mmol/L (3.5-5.1); SODIUM 140 mmol/L (135-144)
[2017-12-08] MEDS: INSULIN ASPART [NOVOLOG] 3 ML PEN SC ×4 (07:47→20:18)
[2017-12-08] MEDS: SEVELAMER CARBONATE 0.8 GM PKT PO ×3 (08:11→17:15)
[2017-12-08] MEDS: VALSARTAN 160 MG TAB PO (08:15)
[2017-12-08] MEDS: MINOXIDIL 2.5 MG TAB PO ×4 (08:16→20:17)
[2017-12-08] MEDS: FERROUS SULFATE (EC) 325 MG TAB PO ×2 (08:16→20:18)
[2017-12-08] MEDS: MULTIVIT/CA CARB/B CMPLX/FA TAB PO (08:17)
[2017-12-08] MEDS: CALCITRIOL 0.25 MCG CAP PO (08:17)
[2017-12-08] MEDS: FAMOTIDINE 20 MG TAB PO (08:17)
[2017-12-08] MEDS: NIFEdipine (XL) 90 MG TAB PO (08:17)
[2017-12-08] MEDS: HEPARIN 1000 UNITS/ML 10 ML INJ CATHETER (15:19)
[2017-12-08] MEDS: EPOETIN 10000 UNITS/1 ML INJ (ESRD) SC (17:49)
[2017-12-09] MEDS: PANTOPRAZOLE (EC) 40 MG TAB PO (05:25)
[2017-12-09 06:24] LABS: ADD MAN DIFF? NO
[2017-12-09 06:26] LABS: WHITE BLOOD COUNT 3.8 10^3/ul (4.8-10.8)
[2017-12-09 06:26] LABS: BASOPHILS % 0.5 % (0.0-2.0); EOSINOPHILS # 0.2 10^3/ul (0.0-0.5); EOSINOPHILS % 5.8 % (0.0-7.0); HEMATOCRIT 22.5 % (42.0-52.0); HEMOGLOBIN 7.4 g/dl (14.0-18.0); LYMPHOCYTES # 1.3 10^3/ul (0.8-2.9); LYMPHOCYTES % 33.9 % (15.0-51.0); MEAN CORPUSCULAR HEMOGLOBIN 30.7 pg (29.0-33.0); MEAN CORPUSCULAR HGB CONC 32.9 g/dl (32.0-37.0); MEAN CORPUSCULAR VOLUME 93.4 fl (82.0-101.0); MEAN PLATELET VOLUME 9.3 fl (7.4-10.4); MONOCYTE # 0.6 10^3/ul (0.3-0.9); NEUTROPHIL # 1.7 10^3/ul (1.6-7.5); NEUTROPHILS % 44.3 % (39.0-77.0); PLATELET COUNT 184 10^3/UL (140-415); RED BLOOD COUNT 2.41 10^6/ul (4.70-6.10); RED CELL DISTRIBUTION WIDTH 14.1 % (11.5-14.5)
[2017-12-09 07:10] LABS: ANION GAP 16 (8-16); BLOOD UREA NITROGEN 30 mg/dl (7-20); CALCIUM 7.4 mg/dl (8.4-10.2); CARBON DIOXIDE 29 mmol/L (21-31); CHLORIDE 98 mmol/L (97-110); CREATININE 4.15 mg/dl (0.61-1.24); GLUCOSE 93 mg/dl (70-220); POTASSIUM 4.3 mmol/L (3.5-5.1); SODIUM 139 mmol/L (135-144)
[2017-12-09] MEDS: INSULIN ASPART [NOVOLOG] 3 ML PEN SC ×4 (08:15→21:00)
[2017-12-09] MEDS: VALSARTAN 160 MG TAB PO (09:07)
[2017-12-09] MEDS: SEVELAMER CARBONATE 0.8 GM PKT PO ×3 (09:09→17:34)
[2017-12-09] MEDS: MINOXIDIL 2.5 MG TAB PO ×2 (09:09→21:13)
[2017-12-09] MEDS: NIFEdipine (XL) 90 MG TAB PO (09:10)
[2017-12-09] MEDS: MULTIVIT/CA CARB/B CMPLX/FA TAB PO (09:10)
[2017-12-09] MEDS: FERROUS SULFATE (EC) 325 MG TAB PO ×2 (09:10→21:12)
[2017-12-09] MEDS: FAMOTIDINE 20 MG TAB PO (09:11)
[2017-12-09] MEDS: CALCITRIOL 0.25 MCG CAP PO (09:12)
[2017-12-10] MEDS: PANTOPRAZOLE (EC) 40 MG TAB PO (05:36)
[2017-12-10 06:21] LABS: ADD MAN DIFF? NO
[2017-12-10 06:45] LABS: WHITE BLOOD COUNT 4.1 10^3/ul (4.8-10.8)
[2017-12-10 06:45] LABS: EOSINOPHILS # 0.3 10^3/ul (0.0-0.5); EOSINOPHILS % 6.1 % (0.0-7.0); HEMATOCRIT 23.6 % (42.0-52.0); HEMOGLOBIN 7.6 g/dl (14.0-18.0); LYMPHOCYTES # 1.4 10^3/ul (0.8-2.9); LYMPHOCYTES % 34.8 % (15.0-51.0); MEAN CORPUSCULAR HEMOGLOBIN 30.4 pg (29.0-33.0); MEAN CORPUSCULAR HGB CONC 32.2 g/dl (32.0-37.0); MEAN CORPUSCULAR VOLUME 94.4 fl (82.0-101.0); MEAN PLATELET VOLUME 9.2 fl (7.4-10.4); MONOCYTE # 0.6 10^3/ul (0.3-0.9); MONOCYTES % 14.6 % (0.0-11.0); NEUTROPHIL # 1.8 10^3/ul (1.6-7.5); NEUTROPHILS % 43.3 % (39.0-77.0); PLATELET COUNT 200 10^3/UL (140-415); RED CELL DISTRIBUTION WIDTH 14.3 % (11.5-14.5)
[2017-12-10 07:12] LABS: ANION GAP 15 (8-16); BLOOD UREA NITROGEN 41 mg/dl (7-20); CALCIUM 7.7 mg/dl (8.4-10.2); CARBON DIOXIDE 29 mmol/L (21-31); CHLORIDE 99 mmol/L (97-110); CREATININE 5.32 mg/dl (0.61-1.24); GLUCOSE 96 mg/dl (70-220); POTASSIUM 4.6 mmol/L (3.5-5.1); SODIUM 138 mmol/L (135-144)
[2017-12-10] MEDS: SEVELAMER CARBONATE 0.8 GM PKT PO ×3 (07:55→17:18)
[2017-12-10] MEDS: INSULIN ASPART [NOVOLOG] 3 ML PEN SC ×5 (07:57→21:49)
[2017-12-10] MEDS: NIFEdipine (XL) 90 MG TAB PO (07:58)
[2017-12-10] MEDS: VALSARTAN 160 MG TAB PO (07:59)
[2017-12-10] MEDS: FERROUS SULFATE (EC) 325 MG TAB PO ×2 (07:59→21:18)
[2017-12-10] MEDS: CALCITRIOL 0.25 MCG CAP PO (07:59)
[2017-12-10] MEDS: MULTIVIT/CA CARB/B CMPLX/FA TAB PO (07:59)
[2017-12-10] MEDS: MINOXIDIL 2.5 MG TAB PO ×2 (08:00→21:17)
[2017-12-10] MEDS: FAMOTIDINE 20 MG TAB PO (08:00)
[2017-12-11] MEDS: PANTOPRAZOLE (EC) 40 MG TAB PO (05:08)
[2017-12-11 05:50] LABS: HEMOGLOBIN 7.5 g/dl (14.0-18.0)
[2017-12-11 05:50] LABS: HEMATOCRIT 23.3 % (42.0-52.0)
[2017-12-11] MEDS: INSULIN ASPART [NOVOLOG] 3 ML PEN SC ×4 (08:09→21:00)
[2017-12-11] MEDS: SEVELAMER CARBONATE 0.8 GM PKT PO ×3 (08:10→18:06)
[2017-12-11] MEDS: MULTIVIT/CA CARB/B CMPLX/FA TAB PO (08:11)
[2017-12-11] MEDS: MINOXIDIL 2.5 MG TAB PO ×2 (08:11→21:10)
[2017-12-11] MEDS: FERROUS SULFATE (EC) 325 MG TAB PO ×2 (08:11→21:10)
[2017-12-11] MEDS: CALCITRIOL 0.25 MCG CAP PO (08:11)
[2017-12-11] MEDS: VALSARTAN 160 MG TAB PO (08:11)
[2017-12-11] MEDS: FAMOTIDINE 20 MG TAB PO (08:11)
[2017-12-11] MEDS: NIFEdipine (XL) 90 MG TAB PO (08:13)
[2017-12-11] MEDS: HEPARIN 1000 UNITS/ML 10 ML INJ CATHETER (17:46)
[2017-12-11] MEDS: EPOETIN ALFA 1,000 UNITS/0.1 ML VIAL SC (18:06)
[2017-12-12] MEDS: PANTOPRAZOLE (EC) 40 MG TAB PO (05:52)
[2017-12-12 06:11] LABS: ADD MAN DIFF? NO
[2017-12-12 06:15] LABS: WHITE BLOOD COUNT 3.5 10^3/ul (4.8-10.8)
[2017-12-12 06:15] LABS: BASOPHILS % 1.1 % (0.0-2.0); EOSINOPHILS # 0.2 10^3/ul (0.0-0.5); EOSINOPHILS % 5.6 % (0.0-7.0); HEMATOCRIT 23.2 % (42.0-52.0); HEMOGLOBIN 7.5 g/dl (14.0-18.0); LYMPHOCYTES # 1.4 10^3/ul (0.8-2.9); LYMPHOCYTES % 38.4 % (15.0-51.0); MEAN CORPUSCULAR HEMOGLOBIN 30.5 pg (29.0-33.0); MEAN CORPUSCULAR HGB CONC 32.3 g/dl (32.0-37.0); MEAN CORPUSCULAR VOLUME 94.3 fl (82.0-101.0); MEAN PLATELET VOLUME 8.9 fl (7.4-10.4); MONOCYTE # 0.5 10^3/ul (0.3-0.9); MONOCYTES % 13.6 % (0.0-11.0); NEUTROPHIL # 1.5 10^3/ul (1.6-7.5); PLATELET COUNT 197 10^3/UL (140-415); RED BLOOD COUNT 2.46 10^6/ul (4.70-6.10); RED CELL DISTRIBUTION WIDTH 14.6 % (11.5-14.5)
[2017-12-12 06:53] LABS: ANION GAP 9 (8-16); BLOOD UREA NITROGEN 41 mg/dl (7-20); CARBON DIOXIDE 32 mmol/L (21-31); CHLORIDE 102 mmol/L (97-110); CREATININE 5.37 mg/dl (0.61-1.24); GLUCOSE 95 mg/dl (70-220); POTASSIUM 4.7 mmol/L (3.5-5.1); SODIUM 138 mmol/L (135-144)
[2017-12-12] MEDS: INSULIN ASPART [NOVOLOG] 3 ML PEN SC ×3 (08:15→18:00)
[2017-12-12] MEDS: SEVELAMER CARBONATE 0.8 GM PKT PO ×2 (08:24→13:14)
[2017-12-12] MEDS: FAMOTIDINE 20 MG TAB PO (08:25)
[2017-12-12] MEDS: CALCITRIOL 0.25 MCG CAP PO (08:25)
[2017-12-12] MEDS: MULTIVIT/CA CARB/B CMPLX/FA TAB PO (08:25)
[2017-12-12] MEDS: FERROUS SULFATE (EC) 325 MG TAB PO (08:25)
[2017-12-12] MEDS: VALSARTAN 160 MG TAB PO (08:25)
[2017-12-12] MEDS: MINOXIDIL 2.5 MG TAB PO (08:25)
[2017-12-12] MEDS: NIFEdipine (XL) 90 MG TAB PO (08:26)
== END 2017-12-12 18:45 | disposition home or self-care (01) | DRG 674 ==
LOC: TEL 16:24 → E/R 13:43 → MS2 12-03 20:41
PROC: 0JH63XZ Insertion of Tunneled Vascular Access Device into Chest Subcutaneous Tissue and Fascia, Percutaneous Approach (ICD-10-PCS; principal; 2017-11-30 09:59)
PROC: 05PYX3Z Removal of Infusion Device from Upper Vein, External Approach (ICD-10-PCS; 2017-11-30 09:59)
PROC: 02H633Z Insertion of Infusion Device into Right Atrium, Percutaneous Approach (ICD-10-PCS; 2017-11-30 09:59)
PROC: B214YZZ Fluoroscopy of Right Heart using Other Contrast (ICD-10-PCS; 2017-11-30 09:59)
PROC: 30233N1 Transfusion of Nonautologous Red Blood Cells into Peripheral Vein, Percutaneous Approach (ICD-10-PCS; 2017-11-30 09:59)
PROC: 0DJ08ZZ Inspection of Upper Intestinal Tract, Via Natural or Artificial Opening Endoscopic (ICD-10-PCS; 2017-11-30 09:59)
PROC: 0DJD8ZZ Inspection of Lower Intestinal Tract, Via Natural or Artificial Opening Endoscopic (ICD-10-PCS; 2017-11-30 09:59)
PROC: 5A1D70Z Performance of Urinary Filtration, Intermittent, Less than 6 Hours Per Day (ICD-10-PCS; 2017-11-30 09:59)
PROC: 02HV33Z Insertion of Infusion Device into Superior Vena Cava, Percutaneous Approach (ICD-10-PCS; 2017-11-30 09:59)
PROC: B518YZA Fluoroscopy of Superior Vena Cava using Other Contrast, Guidance (ICD-10-PCS; 2017-11-30 09:59)
DX: N17.9 Acute kidney failure, unspecified (principal); I82.511 Chronic embolism and thrombosis of right femoral vein; I12.0 Hypertensive chronic kidney disease with stage 5 chronic kidney disease or end stage renal disease; L97.429 Non-pressure chronic ulcer of left heel and midfoot with unspecified severity; I16.0 Hypertensive urgency; D63.1 Anemia in chronic kidney disease; N18.6 End stage renal disease; E87.70 Fluid overload, unspecified; E83.39 Other disorders of phosphorus metabolism; E11.22 Type 2 diabetes mellitus with diabetic chronic kidney disease; E11.622 Type 2 diabetes mellitus with other skin ulcer; K25.9 Gastric ulcer, unspecified as acute or chronic, without hemorrhage or perforation; K29.80 Duodenitis without bleeding; K64.8 Other hemorrhoids; Z99.2 Dependence on renal dialysis
CPT/HCPCS: 36415; 36430; 36556; 36600; 71045; 74250; 76700; 76942; 80048; 80053; 80061; 81001; 81003; 82306; 82570; 82728; 82803; 82962; 83036; 83540; 83735; 83880; 83970; 84100; 84439; 84443; 84484; 85014; 85018; 85025; 85610; 85730; 86021; 86038; 86160; 86162; 86320; 86644; 86706; 86803; 86850; 86900; 86901; 86920; 87040; 87081; 87340; 90935; 93005; 93306; 93926; 93970; 93971; 96374; 96375; 97110; 97116; 97161; 97530; 99291-25

== ENCOUNTER 2018-01-14 09:43 | Observation (INO) | payer MEDICARE, MEDICAID ==
[2018-01-14 10:44] LABS: ADD MAN DIFF? NO
[2018-01-14 10:47] LABS: BASOPHILS % 0.2 % (0.0-2.0); EOSINOPHILS # 0.1 10^3/ul (0.0-0.5); EOSINOPHILS % 0.7 % (0.0-7.0); HEMATOCRIT 24.4 % (42.0-52.0); HEMOGLOBIN 7.9 g/dl (14.0-18.0); LYMPHOCYTES # 1.2 10^3/ul (0.8-2.9); LYMPHOCYTES % 6.7 % (15.0-51.0); MEAN CORPUSCULAR HEMOGLOBIN 28.7 pg (29.0-33.0); MEAN CORPUSCULAR HGB CONC 32.4 g/dl (32.0-37.0); MEAN CORPUSCULAR VOLUME 88.7 fl (82.0-101.0); MEAN PLATELET VOLUME 8.9 fl (7.4-10.4); MONOCYTES % 5.6 % (0.0-11.0); NEUTROPHIL # 15.8 10^3/ul (1.6-7.5); NEUTROPHILS % 86.3 % (39.0-77.0); PLATELET COUNT 347 10^3/UL (140-415); RED BLOOD COUNT 2.75 10^6/ul (4.70-6.10); RED CELL DISTRIBUTION WIDTH 13.9 % (11.5-14.5)
[2018-01-14 10:47] LABS: WHITE BLOOD COUNT 18.3 10^3/ul (4.8-10.8)
[2018-01-14] MEDS: ASPIRIN 81 MG TAB PO (10:55)
[2018-01-14] MEDS: ONDANSETRON 4 MG INJ IV (10:55)
[2018-01-14] MEDS: NITROGLYCERIN 2% 1 GM OINT PKT TD (10:56)
[2018-01-14] MEDS: morphine 4 MG/ML VIAL IV (10:56)
[2018-01-14 11:30] LABS: INR 1.36; PT RATIO 1.3
[2018-01-14 11:33] LABS: ANION GAP 15 (8-16); BLOOD UREA NITROGEN 49 mg/dl (7-20); CALCIUM 7.6 mg/dl (8.4-10.2); CARBON DIOXIDE 30 mmol/L (21-31); CHLORIDE 94 mmol/L (97-110); CREATININE 7.09 mg/dl (0.61-1.24); GLUCOSE 129 mg/dl (70-220); POTASSIUM 4.1 mmol/L (3.5-5.1); SODIUM 135 mmol/L (135-144)
[2018-01-14 11:55] LABS: TROPONIN-I 0.023 ng/ml (0.000-0.120)
[2018-01-14] MEDS ORDERED: ACETAMINOPHEN 325 MG TAB PO ×2 (13:00→14:00)
[2018-01-14] MEDS ORDERED: ONDANSETRON 4 MG INJ IV ×2 (13:00→14:00)
[2018-01-14] MEDS ORDERED: NITROGLYCERIN (SL) 0.4 MG TAB SL (14:00)
[2018-01-14] MEDS ORDERED: DOCUSATE SODIUM 100 MG CAP PO (14:00)
[2018-01-14] MEDS ORDERED: NACL 0.9% 3 ML SYG IV (14:00)
[2018-01-14 14:38] LABS: ALBUMIN 2.7 g/dl (3.3-4.9)
[2018-01-14 14:38] LABS: PHOSPHORUS 3.8 mg/dl (2.5-4.9)
[2018-01-14 17:24] LABS: CREATINE KINASE 42 IU/L (23-200)
[2018-01-14] MEDS: SEVELAMER CARBONATE 0.8 GM PKT PO (17:35)
[2018-01-14 17:36] LABS: CK INDEX 1.8; TROPONIN-I 0.015 ng/ml (0.000-0.120)
[2018-01-14 17:38] LABS: CK-MB 0.76 ng/ml (0.0-2.4)
[2018-01-14 19:19] LABS: HEPATITIS B SURFACE ANTIGEN NEGATIVE (NEGATIVE)
[2018-01-14] MEDS: VITAMIN A & D 5 GM OINT PACKET TOP (21:00)
[2018-01-14] MEDS: PIPER-TAZO 2.25 GM (PMX) 50 ML IVPB (23:01)
[2018-01-14] MEDS: HEPARIN 5,000 UNIT/0.5 ML VIAL SC (23:04)
[2018-01-14 23:21] LABS: CREATINE KINASE 34 IU/L (23-200)
[2018-01-14 23:35] LABS: CK INDEX 2.4; TROPONIN-I 0.015 ng/ml (0.000-0.120)
[2018-01-15] MEDS: PIPER-TAZO 2.25 GM (PMX) 50 ML IVPB ×3 (05:32→21:21)
[2018-01-15] MEDS: PANTOPRAZOLE (EC) 40 MG TAB PO (05:32)
[2018-01-15] MEDS: SEVELAMER CARBONATE 0.8 GM PKT PO ×3 (07:51→18:01)
[2018-01-15] MEDS: NIFEdipine (XL) 90 MG TAB PO (08:53)
[2018-01-15] MEDS: MULTIVIT/CA CARB/B CMPLX/FA TAB PO (08:53)
[2018-01-15] MEDS: CLOPIDOGREL 75 MG TAB PO (08:54)
[2018-01-15] MEDS: VALSARTAN 160 MG TAB PO (08:54)
[2018-01-15] MEDS: VITAMIN A & D 5 GM OINT PACKET TOP ×2 (08:55→21:00)
[2018-01-15] MEDS: HEPARIN 5,000 UNIT/0.5 ML VIAL SC ×2 (09:00→21:28)
[2018-01-15 09:03] LABS: ADD MAN DIFF? NO
[2018-01-15 09:12] LABS: WHITE BLOOD COUNT 13.2 10^3/ul (4.8-10.8)
[2018-01-15 09:12] LABS: BASOPHILS % 0.3 % (0.0-2.0); EOSINOPHILS # 0.3 10^3/ul (0.0-0.5); EOSINOPHILS % 2.1 % (0.0-7.0); HEMATOCRIT 23.6 % (42.0-52.0); HEMOGLOBIN 7.7 g/dl (14.0-18.0); LYMPHOCYTES # 1.2 10^3/ul (0.8-2.9); LYMPHOCYTES % 8.8 % (15.0-51.0); MEAN CORPUSCULAR HEMOGLOBIN 28.9 pg (29.0-33.0); MEAN CORPUSCULAR HGB CONC 32.6 g/dl (32.0-37.0); MEAN CORPUSCULAR VOLUME 88.7 fl (82.0-101.0); MEAN PLATELET VOLUME 8.9 fl (7.4-10.4); MONOCYTE # 0.8 10^3/ul (0.3-0.9); MONOCYTES % 5.7 % (0.0-11.0); NEUTROPHIL # 10.9 10^3/ul (1.6-7.5); NEUTROPHILS % 82.6 % (39.0-77.0); PLATELET COUNT 327 10^3/UL (140-415); RED BLOOD COUNT 2.66 10^6/ul (4.70-6.10); RED CELL DISTRIBUTION WIDTH 14.1 % (11.5-14.5)
[2018-01-15 09:43] LABS: CHOL/HDL RATIO 2.9 RATIO; HDL CHOLESTEROL 24 mg/dl (30-78); LDL CHOLESTEROL,CALCULATED 25 mg/dl; TRIGLYCERIDES 108 mg/dl (0-149)
[2018-01-15 09:43] LABS: CHOLESTEROL 71 mg/dl (100-200)
[2018-01-15 10:13] LABS: ALBUMIN 2.5 g/dl (3.3-4.9); ANION GAP 12 (8-16); BLOOD UREA NITROGEN 34 mg/dl (7-20); CALCIUM 7.4 mg/dl (8.4-10.2); CARBON DIOXIDE 31 mmol/L (21-31); CHLORIDE 99 mmol/L (97-110); GLUCOSE 92 mg/dl (70-220); PHOSPHORUS 3.5 mg/dl (2.5-4.9); POTASSIUM 4.1 mmol/L (3.5-5.1); SODIUM 138 mmol/L (135-144)
[2018-01-15] MEDS: REGADENOSON 0.4 MG/5 ML SYG (10:30)
[2018-01-15] MEDS: POLYETHYLENE GLYCOL 17 GM PACKET PO (12:53)
[2018-01-15] MEDS: DOCUSATE SODIUM 100 MG CAP PO (21:20)
[2018-01-16] MEDS: PIPER-TAZO 2.25 GM (PMX) 50 ML IVPB ×4 (05:16→22:58)
[2018-01-16] MEDS: PANTOPRAZOLE (EC) 40 MG TAB PO (05:19)
[2018-01-16 07:54] LABS: ADD MAN DIFF? NO
[2018-01-16 08:00] LABS: BASOPHIL # 0.1 10^3/ul (0.0-0.1); BASOPHILS % 0.4 % (0.0-2.0); EOSINOPHILS # 0.3 10^3/ul (0.0-0.5); EOSINOPHILS % 1.9 % (0.0-7.0); HEMATOCRIT 23.1 % (42.0-52.0); HEMOGLOBIN 7.5 g/dl (14.0-18.0); LYMPHOCYTES # 1.5 10^3/ul (0.8-2.9); MEAN CORPUSCULAR HEMOGLOBIN 28.6 pg (29.0-33.0); MEAN CORPUSCULAR HGB CONC 32.5 g/dl (32.0-37.0); MEAN CORPUSCULAR VOLUME 88.2 fl (82.0-101.0); MEAN PLATELET VOLUME 8.9 fl (7.4-10.4); MONOCYTE # 0.8 10^3/ul (0.3-0.9); MONOCYTES % 5.7 % (0.0-11.0); NEUTROPHIL # 11.8 10^3/ul (1.6-7.5); NEUTROPHILS % 81.6 % (39.0-77.0); PLATELET COUNT 336 10^3/UL (140-415); RED BLOOD COUNT 2.62 10^6/ul (4.70-6.10); RED CELL DISTRIBUTION WIDTH 14.1 % (11.5-14.5)
[2018-01-16 08:00] LABS: WHITE BLOOD COUNT 14.4 10^3/ul (4.8-10.8)
[2018-01-16] MEDS: NIFEdipine (XL) 90 MG TAB PO (08:28)
[2018-01-16] MEDS: MULTIVIT/CA CARB/B CMPLX/FA TAB PO (08:28)
[2018-01-16] MEDS: CLOPIDOGREL 75 MG TAB PO (08:28)
[2018-01-16] MEDS: SEVELAMER CARBONATE 0.8 GM PKT PO ×3 (08:28→17:53)
[2018-01-16] MEDS: VALSARTAN 160 MG TAB PO (08:29)
[2018-01-16] MEDS: VITAMIN A & D 5 GM OINT PACKET TOP ×3 (08:30→23:07)
[2018-01-16] MEDS: HEPARIN 5,000 UNIT/0.5 ML VIAL SC ×3 (08:33→23:00)
[2018-01-16 09:23] LABS: ALBUMIN 2.5 g/dl (3.3-4.9); ANION GAP 14 (8-16); BLOOD UREA NITROGEN 45 mg/dl (7-20); CALCIUM 7.2 mg/dl (8.4-10.2); CARBON DIOXIDE 29 mmol/L (21-31); CHLORIDE 99 mmol/L (97-110); CREATININE 6.25 mg/dl (0.61-1.24); GLUCOSE 106 mg/dl (70-220); PHOSPHORUS 3.9 mg/dl (2.5-4.9); POTASSIUM 4.1 mmol/L (3.5-5.1); SODIUM 138 mmol/L (135-144)
[2018-01-16 11:09] LABS: ADD UMIC YES; UR ASCORBIC ACID NEGATIVE (NEGATIVE); UR BACTERIA FEW /HPF (NONE SEEN); UR BILIRUBIN (Dip) NEGATIVE (NEGATIVE); UR BLOOD (Dip) NEGATIVE (NEGATIVE); UR CLARITY CLOUDY (CLEAR); UR COLOR AMBER (YELLOW); UR GLUCOSE (Dip) 1+ mg/dL (NEGATIVE); UR KETONES (Dip) NEGATIVE (NEGATIVE); UR LEUKOCYTE ESTERASE (Dip) TRACE Leu/ul (NEGATIVE); UR NITRITE (Dip) NEGATIVE (NEGATIVE); UR RBC 6 /HPF (0-5); UR SPECIFIC GRAVITY (Dip) 1.025 (1.003-1.030); UR SQUAMOUS EPITHELIAL CELL FEW /HPF (FEW); UR TOTAL PROTEIN (Dip) 3+ mg/dl (NEGATIVE); UR UROBILINOGEN (Dip) NEGATIVE (NEGATIVE); UR WBC 43 /HPF (0-5)
[2018-01-16 12:41] LABS: IRON 39 ug/dl (35-150)
[2018-01-16 12:50] LABS: % IRON SATURATION 29 % SAT (22-52); TOTAL IRON BINDING CAPACITY 135 ug/dl (241-421)
[2018-01-16 15:07] LABS: ALANINE AMINOTRANSFERASE 22 IU/L (13-69); ALBUMIN 2.6 g/dl (3.3-4.9); ALKALINE PHOSPHATASE 129 IU/L (42-121); ASPARTATE AMINO TRANSFERASE 22 IU/L (15-46); TOTAL PROTEIN 5.6 g/dl (6.1-8.1)
[2018-01-16] MEDS: EPOETIN 10000 UNITS/1 ML INJ (ESRD) SC (17:53)
[2018-01-16] MEDS: HEPARIN 1000 UNITS/ML 10 ML INJ CATHETER (20:30)
[2018-01-17] MEDS: PIPER-TAZO 2.25 GM (PMX) 50 ML IVPB ×2 (05:39→13:58)
[2018-01-17] MEDS: PANTOPRAZOLE (EC) 40 MG TAB PO (05:39)
[2018-01-17 07:35] LABS: ADD MAN DIFF? NO
[2018-01-17 07:42] LABS: BASOPHIL # 0.1 10^3/ul (0.0-0.1); BASOPHILS % 0.4 % (0.0-2.0); EOSINOPHILS # 0.3 10^3/ul (0.0-0.5); EOSINOPHILS % 2.4 % (0.0-7.0); HEMATOCRIT 23.4 % (42.0-52.0); HEMOGLOBIN 7.6 g/dl (14.0-18.0); LYMPHOCYTES # 1.3 10^3/ul (0.8-2.9); MEAN CORPUSCULAR HEMOGLOBIN 28.5 pg (29.0-33.0); MEAN CORPUSCULAR HGB CONC 32.5 g/dl (32.0-37.0); MEAN CORPUSCULAR VOLUME 87.6 fl (82.0-101.0); MONOCYTE # 0.9 10^3/ul (0.3-0.9); MONOCYTES % 7.4 % (0.0-11.0); NEUTROPHIL # 9.1 10^3/ul (1.6-7.5); NEUTROPHILS % 77.9 % (39.0-77.0); PLATELET COUNT 327 10^3/UL (140-415); RED BLOOD COUNT 2.67 10^6/ul (4.70-6.10); RED CELL DISTRIBUTION WIDTH 14.2 % (11.5-14.5)
[2018-01-17 07:42] LABS: WHITE BLOOD COUNT 11.7 10^3/ul (4.8-10.8)
[2018-01-17 08:01] LABS: ALBUMIN 2.6 g/dl (3.3-4.9); ANION GAP 13 (8-16); BLOOD UREA NITROGEN 29 mg/dl (7-20); CALCIUM 7.3 mg/dl (8.4-10.2); CARBON DIOXIDE 30 mmol/L (21-31); CHLORIDE 101 mmol/L (97-110); CREATININE 4.65 mg/dl (0.61-1.24); GLUCOSE 108 mg/dl (70-220); MAGNESIUM 1.9 mg/dl (1.7-2.5); PHOSPHORUS 3.4 mg/dl (2.5-4.9); POTASSIUM 3.9 mmol/L (3.5-5.1); SODIUM 140 mmol/L (135-144)
[2018-01-17] MEDS: VITAMIN A & D 5 GM OINT PACKET TOP (08:38)
[2018-01-17] MEDS: SEVELAMER CARBONATE 0.8 GM PKT PO ×2 (08:38→12:16)
[2018-01-17] MEDS: NIFEdipine (XL) 90 MG TAB PO (08:38)
[2018-01-17] MEDS: DOCUSATE SODIUM 100 MG CAP PO (08:39)
[2018-01-17] MEDS: VALSARTAN 160 MG TAB PO (08:39)
[2018-01-17] MEDS: MULTIVIT/CA CARB/B CMPLX/FA TAB PO (08:39)
[2018-01-17] MEDS: CLOPIDOGREL 75 MG TAB PO (08:39)
[2018-01-17] MEDS: HEPARIN 5,000 UNIT/0.5 ML VIAL SC (08:40)
[2018-01-17] MEDS: POLYETHYLENE GLYCOL 17 GM PACKET PO (12:16)
== END 2018-01-17 17:00 | disposition home or self-care (01) ==
LOC: E/R 09:43 → MS3 12:55 → MS4 18:05
DX: R07.89 Other chest pain (principal); I12.0 Hypertensive chronic kidney disease with stage 5 chronic kidney disease or end stage renal disease; N18.6 End stage renal disease; Z99.2 Dependence on renal dialysis; D64.9 Anemia, unspecified; D72.829 Elevated white blood cell count, unspecified; L97.429 Non-pressure chronic ulcer of left heel and midfoot with unspecified severity; I70.203 Unspecified atherosclerosis of native arteries of extremities, bilateral legs
CPT/HCPCS: 36415; 71045; 78226; 78452; 80048; 80061; 80069; 80076; 81001; 82040; 82550; 82553; 82728; 83540; 83735; 84100; 84484; 85025; 85610; 85730; 87081; 87340; 90935; 93005; 93017; 93922; 93970; 96374; 96375; 99217; 99285-25; G0378

== ENCOUNTER 2018-01-29 20:12 | Inpatient (IN) | payer OTHER, MEDICAID, MEDICARE ==
[2018-01-29 21:32] LABS: ADD MAN DIFF? NO
[2018-01-29 21:35] LABS: WHITE BLOOD COUNT 11.3 10^3/ul (4.8-10.8)
[2018-01-29 21:35] LABS: BASOPHIL # 0.1 10^3/ul (0.0-0.1); BASOPHILS % 0.4 % (0.0-2.0); EOSINOPHILS # 0.3 10^3/ul (0.0-0.5); EOSINOPHILS % 2.3 % (0.0-7.0); HEMATOCRIT 23.9 % (42.0-52.0); HEMOGLOBIN 7.6 g/dl (14.0-18.0); LYMPHOCYTES # 1.4 10^3/ul (0.8-2.9); LYMPHOCYTES % 11.9 % (15.0-51.0); MEAN CORPUSCULAR HEMOGLOBIN 28.7 pg (29.0-33.0); MEAN CORPUSCULAR HGB CONC 31.8 g/dl (32.0-37.0); MEAN CORPUSCULAR VOLUME 90.2 fl (82.0-101.0); MEAN PLATELET VOLUME 8.8 fl (7.4-10.4); MONOCYTE # 0.8 10^3/ul (0.3-0.9); MONOCYTES % 7.4 % (0.0-11.0); NEUTROPHIL # 8.8 10^3/ul (1.6-7.5); NEUTROPHILS % 77.6 % (39.0-77.0); PLATELET COUNT 175 10^3/UL (140-415); RED BLOOD COUNT 2.65 10^6/ul (4.70-6.10); RED CELL DISTRIBUTION WIDTH 16.2 % (11.5-14.5)
[2018-01-29] MEDS: VANCOMYCIN 1 GM (PMX) 250 ML IVPB (21:38)
[2018-01-29] MEDS: PIPER-TAZO 3.375 GM IV (PMX) 100 ML IVPB (21:38)
[2018-01-29 21:55] LABS: ALANINE AMINOTRANSFERASE 21 IU/L (13-69); ALBUMIN 2.7 g/dl (3.3-4.9); ALBUMIN/GLOBULIN RATIO 0.87; ALKALINE PHOSPHATASE 101 IU/L (42-121); ANION GAP 12 (8-16); ASPARTATE AMINO TRANSFERASE 21 IU/L (15-46); BILIRUBIN,INDIRECT 0.1 mg/dl (0-1.1); BILIRUBIN,TOTAL 0.1 mg/dl (0.2-1.3); BLOOD UREA NITROGEN 50 mg/dl (7-20); CALCIUM 7.3 mg/dl (8.4-10.2); CARBON DIOXIDE 31 mmol/L (21-31); CHLORIDE 94 mmol/L (97-110); CREATININE 5.71 mg/dl (0.61-1.24); GLUCOSE 140 mg/dl (70-220); POTASSIUM 3.4 mmol/L (3.5-5.1); SODIUM 134 mmol/L (135-144); TOTAL PROTEIN 5.8 g/dl (6.1-8.1)
[2018-01-29 22:06] LABS: INR 1.29; PROTIME 16.3 Sec (11.9-14.9); PT RATIO 1.3
[2018-01-29 22:07] LABS: PARTIAL THROMBOPLASTIN TIME 43.6 Sec (25.0-35.0)
[2018-01-29 22:08] LABS: TROPONIN-I 0.022 ng/ml (0.000-0.120)
[2018-01-29 22:18] LABS: LACTIC ACID 1.2 mmol/L (0.5-2.0)
[2018-01-29] MEDS ORDERED: ACETAMINOPHEN 325 MG TAB PO (23:00)
[2018-01-29] MEDS ORDERED: ONDANSETRON 4 MG INJ IV (23:00)
[2018-01-30] MEDS ORDERED: ACETAMINOPHEN 325 MG TAB PO
[2018-01-30] MEDS ORDERED: DOCUSATE SODIUM 100 MG CAP PO
[2018-01-30] MEDS ORDERED: NACL 0.9% 3 ML SYG IV
[2018-01-30] MEDS ORDERED: morphine 2 MG INJ IV
[2018-01-30 00:09] LABS: LACTIC ACID 1.1 mmol/L (0.5-2.0)
[2018-01-30] MEDS ORDERED: VANCOMYCIN IV PER PHARMACY XX (01:00)
[2018-01-30] MEDS: SOD CHLORIDE 0.9% 1,000 ML IV (05:37)
[2018-01-30 05:39] LABS: ADD MAN DIFF? NO
[2018-01-30 05:52] LABS: WHITE BLOOD COUNT 10.7 10^3/ul (4.8-10.8)
[2018-01-30 05:52] LABS: BASOPHIL # 0.1 10^3/ul (0.0-0.1); BASOPHILS % 0.6 % (0.0-2.0); EOSINOPHILS # 0.3 10^3/ul (0.0-0.5); EOSINOPHILS % 3.2 % (0.0-7.0); HEMATOCRIT 21.3 % (42.0-52.0); LYMPHOCYTES # 1.4 10^3/ul (0.8-2.9); LYMPHOCYTES % 13.1 % (15.0-51.0); MEAN CORPUSCULAR HGB CONC 32.9 g/dl (32.0-37.0); MEAN CORPUSCULAR VOLUME 88.4 fl (82.0-101.0); MEAN PLATELET VOLUME 9.2 fl (7.4-10.4); MONOCYTE # 0.8 10^3/ul (0.3-0.9); MONOCYTES % 7.9 % (0.0-11.0); NEUTROPHILS % 74.8 % (39.0-77.0); PLATELET COUNT 187 10^3/UL (140-415); RED BLOOD COUNT 2.41 10^6/ul (4.70-6.10); RED CELL DISTRIBUTION WIDTH 16.1 % (11.5-14.5)
[2018-01-30 05:53] LABS: LACTIC ACID 0.8 mmol/L (0.5-2.0)
[2018-01-30 06:06] LABS: HEMOGLOBIN A1C 5.8 % (0-5.9)
[2018-01-30 06:10] LABS: ALANINE AMINOTRANSFERASE 22 IU/L (13-69); ALBUMIN 2.4 g/dl (3.3-4.9); ALBUMIN/GLOBULIN RATIO 0.88; ALKALINE PHOSPHATASE 97 IU/L (42-121); ANION GAP 13 (8-16); ASPARTATE AMINO TRANSFERASE 18 IU/L (15-46); BILIRUBIN,INDIRECT 0.2 mg/dl (0-1.1); BILIRUBIN,TOTAL 0.2 mg/dl (0.2-1.3); BLOOD UREA NITROGEN 51 mg/dl (7-20); CALCIUM 7.1 mg/dl (8.4-10.2); CARBON DIOXIDE 30 mmol/L (21-31); CHLORIDE 95 mmol/L (97-110); CHOL/HDL RATIO 1.8 RATIO; CHOLESTEROL 66 mg/dl (100-200); CREATININE 5.79 mg/dl (0.61-1.24); GLUCOSE 78 mg/dl (70-220); HDL CHOLESTEROL 35 mg/dl (30-78); POTASSIUM 3.7 mmol/L (3.5-5.1); SODIUM 134 mmol/L (135-144); TOTAL PROTEIN 5.1 g/dl (6.1-8.1)
[2018-01-30] MEDS: PIPER-TAZO 2.25 GM (PMX) 50 ML IVPB ×3 (06:12→22:02)
[2018-01-30 06:45] LABS: LDL CHOLESTEROL,CALCULATED 20 mg/dl
[2018-01-30 06:49] LABS: TRIGLYCERIDES 56 mg/dl (0-149)
[2018-01-30] MEDS: SODIUM HYPOCHLORITE 1/40% 1L IRRIG IRR ×3 (08:22→21:00)
[2018-01-30] MEDS: VALSARTAN 160 MG TAB PO (10:13)
[2018-01-30] MEDS: NIFEdipine (XL) 90 MG TAB PO (10:14)
[2018-01-30] MEDS: SEVELAMER CARBONATE 0.8 GM PKT PO ×2 (10:14→17:12)
[2018-01-30] MEDS: VANCOMYCIN 500MG/NS (PMX) 100 ML IVPB (10:24)
[2018-01-30 15:54] LABS: HEMATOCRIT 24.1 % (42.0-52.0); HEMOGLOBIN 7.8 g/dl (14.0-18.0)
[2018-01-30] MEDS ORDERED: GLUCOSE GEL 15 GRAM TUBE BUCCAL (16:00)
[2018-01-30] MEDS ORDERED: GLUCAGON 1 MG INJ IM (16:00)
[2018-01-30] MEDS ORDERED: GLUCOSE GEL 15 GRAM TUBE PO ×2 (16:00)
[2018-01-30] MEDS ORDERED: DEXTROSE 50% 50 ML SYRINGE IV ×2 (16:00)
[2018-01-30] MEDS: INSULIN ASPART [NOVOLOG] 3 ML PEN SC ×2 (16:58→21:52)
[2018-01-30 18:43] LABS: IMMEDIATE SPIN CROSSMATCH 1 2
[2018-01-30] MEDS ORDERED: HEPARIN 1000 UNITS/ML 10 ML INJ CATHETER (19:55)
[2018-01-30] MEDS ORDERED: NON-FORMULARY/PATIENT OWN MED (Carvedilol* 25 MG) PO (21:00)
[2018-01-30] MEDS: HEPARIN 1000 UNITS/ML 10 ML INJ CATHETER (21:24)
[2018-01-30] MEDS: MINOXIDIL 2.5 MG TAB PO (22:02)
[2018-01-30] MEDS: EPOETIN 10000 UNITS/1 ML INJ (ESRD) SC (22:03)
[2018-01-31] MEDS: SOD CHLORIDE 0.9% 1,000 ML IV
[2018-01-31 05:07] LABS: ADD MAN DIFF? NO
[2018-01-31 05:10] LABS: WHITE BLOOD COUNT 9.5 10^3/ul (4.8-10.8)
[2018-01-31 05:10] LABS: BASOPHIL # 0.1 10^3/ul (0.0-0.1); BASOPHILS % 0.5 % (0.0-2.0); EOSINOPHILS # 0.4 10^3/ul (0.0-0.5); EOSINOPHILS % 3.9 % (0.0-7.0); HEMATOCRIT 27.4 % (42.0-52.0); LYMPHOCYTES # 1.2 10^3/ul (0.8-2.9); LYMPHOCYTES % 12.4 % (15.0-51.0); MEAN CORPUSCULAR HEMOGLOBIN 28.4 pg (29.0-33.0); MEAN CORPUSCULAR HGB CONC 32.8 g/dl (32.0-37.0); MEAN CORPUSCULAR VOLUME 86.4 fl (82.0-101.0); MEAN PLATELET VOLUME 8.9 fl (7.4-10.4); MONOCYTE # 0.7 10^3/ul (0.3-0.9); MONOCYTES % 7.2 % (0.0-11.0); NEUTROPHIL # 7.2 10^3/ul (1.6-7.5); NEUTROPHILS % 75.7 % (39.0-77.0); PLATELET COUNT 222 10^3/UL (140-415); RED BLOOD COUNT 3.17 10^6/ul (4.70-6.10); RED CELL DISTRIBUTION WIDTH 16.7 % (11.5-14.5)
[2018-01-31] MEDS: PIPER-TAZO 2.25 GM (PMX) 50 ML IVPB ×2 (05:25→17:09)
[2018-01-31] MEDS: PANTOPRAZOLE (EC) 40 MG TAB PO (05:25)
[2018-01-31 05:47] LABS: ANION GAP 12 (8-16); BLOOD UREA NITROGEN 34 mg/dl (7-20); CALCIUM 7.3 mg/dl (8.4-10.2); CARBON DIOXIDE 31 mmol/L (21-31); CHLORIDE 99 mmol/L (97-110); CREATININE 4.14 mg/dl (0.61-1.24); GLUCOSE 140 mg/dl (70-220); POTASSIUM 3.8 mmol/L (3.5-5.1); SODIUM 138 mmol/L (135-144)
[2018-01-31 05:48] LABS: IRON 27 ug/dl (35-150)
[2018-01-31 05:57] LABS: % IRON SATURATION 18 % SAT (22-52); TOTAL IRON BINDING CAPACITY 147 ug/dl (241-421)
[2018-01-31] MEDS ORDERED: ONDANSETRON 4 MG INJ (07:00)
[2018-01-31] MEDS ORDERED: LIDOCAINE 2% (SDV) 5 ML INJ (07:00)
[2018-01-31] MEDS ORDERED: METOCLOPRAMIDE 10 MG INJ (07:00)
[2018-01-31] MEDS: SEVELAMER CARBONATE 0.8 GM PKT PO ×3 (07:35→17:10)
[2018-01-31] MEDS: INSULIN ASPART [NOVOLOG] 3 ML PEN SC ×5 (07:35→21:00)
[2018-01-31] MEDS: SODIUM HYPOCHLORITE 1/40% 1L IRRIG IRR ×3 (08:05→22:04)
[2018-01-31] MEDS: VALSARTAN 160 MG TAB PO ×2 (08:05→21:00)
[2018-01-31] MEDS: NIFEdipine (XL) 90 MG TAB PO (08:06)
[2018-01-31] MEDS: MULTIVIT/CA CARB/B CMPLX/FA TAB PO (08:06)
[2018-01-31] MEDS: MINOXIDIL 2.5 MG TAB PO ×2 (08:06→21:14)
[2018-01-31] MEDS ORDERED: MULTIVIT/CA CARB/B CMPLX/FA TAB PO (09:00)
[2018-01-31] MEDS ORDERED: morphine LIQ (10 MG/5 ML) CUP PO (14:30)
[2018-01-31] MEDS ORDERED: FENTAnyl 50 MCG/ML VIAL (15:16)
[2018-01-31] MEDS ORDERED: PROPOFOL 20 ML (15:17)
[2018-01-31] MEDS ORDERED: MIDAZOLAM 1 MG/ML 2 ML INJ (15:17)
[2018-01-31] MEDS ORDERED: METOCLOPRAMIDE 10 MG INJ IV (16:00)
[2018-01-31] MEDS ORDERED: hydrALAzine 20 MG INJ IV (16:00)
[2018-01-31] MEDS ORDERED: LABETALOL HCL 20MG INJ IV (16:00)
[2018-01-31] MEDS ORDERED: HYDROmorphONE 1 MG/5 ML IV SYRINGE IV ×2 (16:00)
[2018-01-31] MEDS ORDERED: DIPHENHYDRAMINE 50 MG INJ IV (16:00)
[2018-01-31] MEDS ORDERED: DIPHENHYDRAMINE 25 MG CAP PO (16:00)
[2018-01-31] MEDS ORDERED: IBUPROFEN 600 MG TAB PO (16:00)
[2018-01-31] MEDS ORDERED: FENTAnyl 50 MCG/ML VIAL IV (16:00)
[2018-01-31] MEDS ORDERED: IPRATROPIUM (NEB) 0.5 MG/2.5 ML AMP HHN (16:00)
[2018-01-31] MEDS ORDERED: ONDANSETRON 4 MG INJ IV (16:00)
[2018-01-31] MEDS: ASPIRIN 81 MG TAB PO (17:09)
[2018-01-31] MEDS: CLOPIDOGREL 75 MG TAB PO (17:09)
[2018-01-31] MEDS: SOD FERRIC GLUC COMPLX 125 MG in SOD CHLORIDE 0.9% 100 ML IVPB (18:13)
[2018-02-01] MEDS: PIPER-TAZO 2.25 GM (PMX) 50 ML IVPB ×4 (00:38→23:02)
[2018-02-01] MEDS: PANTOPRAZOLE (EC) 40 MG TAB PO (05:31)
[2018-02-01] MEDS: BISACODYL (EC) 5 MG TAB PO (05:31)
[2018-02-01 06:24] LABS: ANION GAP 12 (8-16); BLOOD UREA NITROGEN 41 mg/dl (7-20); CALCIUM 7.8 mg/dl (8.4-10.2); CARBON DIOXIDE 31 mmol/L (21-31); CHLORIDE 98 mmol/L (97-110); CREATININE 5.22 mg/dl (0.61-1.24); GLUCOSE 127 mg/dl (70-220); SODIUM 137 mmol/L (135-144)
[2018-02-01 06:29] LABS: VANCOMYCIN,RANDOM 9.8 ug/ml
[2018-02-01] MEDS: SEVELAMER CARBONATE 0.8 GM PKT PO ×3 (07:51→17:19)
[2018-02-01] MEDS: INSULIN ASPART [NOVOLOG] 3 ML PEN SC ×4 (08:00→21:00)
[2018-02-01] MEDS: MULTIVIT/CA CARB/B CMPLX/FA TAB PO (09:00)
[2018-02-01] MEDS: MINOXIDIL 2.5 MG TAB PO (09:00)
[2018-02-01] MEDS: ASPIRIN 81 MG TAB PO (09:00)
[2018-02-01] MEDS: VALSARTAN 160 MG TAB PO (09:00)
[2018-02-01] MEDS: CLOPIDOGREL 75 MG TAB PO (09:00)
[2018-02-01 09:49] LABS: ADD MAN DIFF? NO
[2018-02-01 09:55] LABS: BASOPHIL # 0.1 10^3/ul (0.0-0.1); BASOPHILS % 0.5 % (0.0-2.0); EOSINOPHILS # 0.3 10^3/ul (0.0-0.5); EOSINOPHILS % 2.2 % (0.0-7.0); HEMATOCRIT 29.2 % (42.0-52.0); HEMOGLOBIN 9.3 g/dl (14.0-18.0); LYMPHOCYTES # 1.2 10^3/ul (0.8-2.9); LYMPHOCYTES % 9.5 % (15.0-51.0); MEAN CORPUSCULAR HEMOGLOBIN 28.2 pg (29.0-33.0); MEAN CORPUSCULAR HGB CONC 31.8 g/dl (32.0-37.0); MEAN CORPUSCULAR VOLUME 88.5 fl (82.0-101.0); MEAN PLATELET VOLUME 8.8 fl (7.4-10.4); MONOCYTE # 0.8 10^3/ul (0.3-0.9); MONOCYTES % 6.1 % (0.0-11.0); NEUTROPHIL # 10.5 10^3/ul (1.6-7.5); NEUTROPHILS % 81.3 % (39.0-77.0); PLATELET COUNT 250 10^3/UL (140-415); RED CELL DISTRIBUTION WIDTH 17.1 % (11.5-14.5)
[2018-02-01 09:55] LABS: WHITE BLOOD COUNT 12.9 10^3/ul (4.8-10.8)
[2018-02-01] MEDS: VANCOMYCIN 1 GM 250 ML IVPB (11:08)
[2018-02-01] MEDS: SODIUM HYPOCHLORITE 1/40% 1L IRRIG IRR ×3 (14:30→21:00)
[2018-02-01] MEDS: EPOETIN 10000 UNITS/1 ML INJ (ESRD) SC (17:22)
[2018-02-01] MEDS: SOD FERRIC GLUC COMPLX 125 MG in SOD CHLORIDE 0.9% 100 ML IVPB (17:31)
[2018-02-01] MEDS: NIFEdipine (XL) 90 MG TAB PO (17:32)
[2018-02-01] MEDS: HEPARIN 1000 UNITS/ML 10 ML INJ CATHETER (22:13)
[2018-02-02] MEDS: VALSARTAN 160 MG TAB PO ×3 (02:08→22:10)
[2018-02-02] MEDS: MINOXIDIL 2.5 MG TAB PO ×3 (02:09→22:10)
[2018-02-02] MEDS: ZOLPIDEM 5 MG TAB PO ×2 (02:11→22:06)
[2018-02-02 05:17] LABS: ADD MAN DIFF? NO
[2018-02-02 05:22] LABS: BASOPHIL # 0.1 10^3/ul (0.0-0.1); BASOPHILS % 0.6 % (0.0-2.0); EOSINOPHILS # 0.3 10^3/ul (0.0-0.5); HEMATOCRIT 27.8 % (42.0-52.0); LYMPHOCYTES # 1.5 10^3/ul (0.8-2.9); MEAN CORPUSCULAR HEMOGLOBIN 28.1 pg (29.0-33.0); MEAN CORPUSCULAR HGB CONC 32.4 g/dl (32.0-37.0); MEAN CORPUSCULAR VOLUME 86.9 fl (82.0-101.0); MEAN PLATELET VOLUME 9.2 fl (7.4-10.4); MONOCYTE # 0.6 10^3/ul (0.3-0.9); MONOCYTES % 6.8 % (0.0-11.0); NEUTROPHIL # 6.1 10^3/ul (1.6-7.5); NEUTROPHILS % 71.1 % (39.0-77.0); PLATELET COUNT 250 10^3/UL (140-415); RED CELL DISTRIBUTION WIDTH 16.5 % (11.5-14.5)
[2018-02-02 05:22] LABS: WHITE BLOOD COUNT 8.5 10^3/ul (4.8-10.8)
[2018-02-02] MEDS: PANTOPRAZOLE (EC) 40 MG TAB PO (05:47)
[2018-02-02] MEDS: PIPER-TAZO 2.25 GM (PMX) 50 ML IVPB ×3 (05:48→22:09)
[2018-02-02 06:01] LABS: ANION GAP 11 (8-16); BLOOD UREA NITROGEN 29 mg/dl (7-20); CALCIUM 7.6 mg/dl (8.4-10.2); CARBON DIOXIDE 31 mmol/L (21-31); CHLORIDE 100 mmol/L (97-110); GLUCOSE 138 mg/dl (70-220); PHOSPHORUS 3.1 mg/dl (2.5-4.9); POTASSIUM 3.9 mmol/L (3.5-5.1); SODIUM 138 mmol/L (135-144)
[2018-02-02] MEDS: INSULIN ASPART [NOVOLOG] 3 ML PEN SC ×4 (07:59→21:00)
[2018-02-02] MEDS: CLOPIDOGREL 75 MG TAB PO (08:45)
[2018-02-02] MEDS: MULTIVIT/CA CARB/B CMPLX/FA TAB PO (08:45)
[2018-02-02] MEDS: ASPIRIN 81 MG TAB PO (08:45)
[2018-02-02] MEDS: SEVELAMER CARBONATE 0.8 GM PKT PO ×3 (08:45→17:19)
[2018-02-02] MEDS: SODIUM HYPOCHLORITE 1/40% 1L IRRIG IRR ×2 (09:35→21:00)
[2018-02-02] MEDS: NIFEdipine (XL) 90 MG TAB PO (09:35)
[2018-02-02] MEDS: SOD FERRIC GLUC COMPLX 125 MG in SOD CHLORIDE 0.9% 100 ML IVPB (17:19)
[2018-02-03 05:38] LABS: ADD MAN DIFF? NO
[2018-02-03 05:57] LABS: BASOPHIL # 0.1 10^3/ul (0.0-0.1); BASOPHILS % 0.8 % (0.0-2.0); EOSINOPHILS # 0.4 10^3/ul (0.0-0.5); EOSINOPHILS % 4.6 % (0.0-7.0); HEMATOCRIT 27.2 % (42.0-52.0); HEMOGLOBIN 8.9 g/dl (14.0-18.0); LYMPHOCYTES % 21.8 % (15.0-51.0); MEAN CORPUSCULAR HEMOGLOBIN 28.6 pg (29.0-33.0); MEAN CORPUSCULAR HGB CONC 32.7 g/dl (32.0-37.0); MEAN CORPUSCULAR VOLUME 87.5 fl (82.0-101.0); MEAN PLATELET VOLUME 8.9 fl (7.4-10.4); MONOCYTE # 0.8 10^3/ul (0.3-0.9); MONOCYTES % 8.6 % (0.0-11.0); NEUTROPHIL # 5.9 10^3/ul (1.6-7.5); NEUTROPHILS % 63.5 % (39.0-77.0); PLATELET COUNT 296 10^3/UL (140-415); RED BLOOD COUNT 3.11 10^6/ul (4.70-6.10); RED CELL DISTRIBUTION WIDTH 16.7 % (11.5-14.5)
[2018-02-03 05:57] LABS: WHITE BLOOD COUNT 9.2 10^3/ul (4.8-10.8)
[2018-02-03] MEDS: PANTOPRAZOLE (EC) 40 MG TAB PO (06:21)
[2018-02-03] MEDS: PIPER-TAZO 2.25 GM (PMX) 50 ML IVPB ×3 (06:21→21:04)
[2018-02-03 06:22] LABS: ALBUMIN 2.6 g/dl (3.3-4.9); ANION GAP 11 (8-16); BLOOD UREA NITROGEN 40 mg/dl (7-20); CALCIUM 7.6 mg/dl (8.4-10.2); CARBON DIOXIDE 31 mmol/L (21-31); CHLORIDE 100 mmol/L (97-110); CREATININE 5.26 mg/dl (0.61-1.24); GLUCOSE 119 mg/dl (70-220); MAGNESIUM 1.9 mg/dl (1.7-2.5); PHOSPHORUS 3.5 mg/dl (2.5-4.9); SODIUM 138 mmol/L (135-144)
[2018-02-03] MEDS: INSULIN ASPART [NOVOLOG] 3 ML PEN SC ×4 (08:00→20:59)
[2018-02-03] MEDS: CLOPIDOGREL 75 MG TAB PO (08:14)
[2018-02-03] MEDS: VALSARTAN 160 MG TAB PO ×2 (08:15→21:06)
[2018-02-03] MEDS: MULTIVIT/CA CARB/B CMPLX/FA TAB PO (08:15)
[2018-02-03] MEDS: SEVELAMER CARBONATE 0.8 GM PKT PO ×3 (08:15→17:28)
[2018-02-03] MEDS: MINOXIDIL 2.5 MG TAB PO ×2 (08:15→21:06)
[2018-02-03] MEDS: NIFEdipine (XL) 90 MG TAB PO (08:15)
[2018-02-03] MEDS: ASPIRIN 81 MG TAB PO (08:15)
[2018-02-03] MEDS: SODIUM HYPOCHLORITE 1/40% 1L IRRIG IRR ×2 (08:16→21:00)
[2018-02-03 16:54] LABS: OCCULT BLOOD STOOL NEGATIVE (NEGATIVE)
[2018-02-03] MEDS: SOD FERRIC GLUC COMPLX 125 MG in SOD CHLORIDE 0.9% 100 ML IVPB (17:28)
[2018-02-03] MEDS: ZOLPIDEM 5 MG TAB PO (21:06)
[2018-02-04 01:07] LABS: OCCULT BLOOD STOOL NEGATIVE (NEGATIVE)
[2018-02-04] MEDS: PANTOPRAZOLE (EC) 40 MG TAB PO (05:45)
[2018-02-04] MEDS: PIPER-TAZO 2.25 GM (PMX) 50 ML IVPB ×3 (05:47→22:06)
[2018-02-04 06:10] LABS: ADD MAN DIFF? NO
[2018-02-04 06:22] LABS: BASOPHIL # 0.1 10^3/ul (0.0-0.1); BASOPHILS % 0.9 % (0.0-2.0); EOSINOPHILS # 0.4 10^3/ul (0.0-0.5); EOSINOPHILS % 3.8 % (0.0-7.0); HEMATOCRIT 27.3 % (42.0-52.0); HEMOGLOBIN 8.8 g/dl (14.0-18.0); LYMPHOCYTES # 1.8 10^3/ul (0.8-2.9); LYMPHOCYTES % 17.3 % (15.0-51.0); MEAN CORPUSCULAR HEMOGLOBIN 28.3 pg (29.0-33.0); MEAN CORPUSCULAR HGB CONC 32.2 g/dl (32.0-37.0); MEAN CORPUSCULAR VOLUME 87.8 fl (82.0-101.0); MEAN PLATELET VOLUME 8.7 fl (7.4-10.4); MONOCYTE # 0.9 10^3/ul (0.3-0.9); MONOCYTES % 8.5 % (0.0-11.0); NEUTROPHIL # 7.1 10^3/ul (1.6-7.5); NEUTROPHILS % 68.9 % (39.0-77.0); PLATELET COUNT 322 10^3/UL (140-415); RED BLOOD COUNT 3.11 10^6/ul (4.70-6.10); RED CELL DISTRIBUTION WIDTH 16.7 % (11.5-14.5)
[2018-02-04 06:22] LABS: WHITE BLOOD COUNT 10.3 10^3/ul (4.8-10.8)
[2018-02-04 06:27] LABS: ALBUMIN 2.5 g/dl (3.3-4.9); ANION GAP 13 (8-16); BLOOD UREA NITROGEN 50 mg/dl (7-20); CALCIUM 7.7 mg/dl (8.4-10.2); CARBON DIOXIDE 26 mmol/L (21-31); CHLORIDE 103 mmol/L (97-110); CREATININE 6.06 mg/dl (0.61-1.24); GLUCOSE 119 mg/dl (70-220); PHOSPHORUS 3.8 mg/dl (2.5-4.9); POTASSIUM 3.7 mmol/L (3.5-5.1); SODIUM 138 mmol/L (135-144)
[2018-02-04 06:41] LABS: VANCOMYCIN,RANDOM 12.5 ug/ml
[2018-02-04] MEDS: SEVELAMER CARBONATE 0.8 GM PKT PO ×3 (07:35→17:10)
[2018-02-04] MEDS: INSULIN ASPART [NOVOLOG] 3 ML PEN SC ×4 (08:00→21:00)
[2018-02-04] MEDS: ASPIRIN 81 MG TAB PO (08:38)
[2018-02-04] MEDS: SODIUM HYPOCHLORITE 1/40% 1L IRRIG IRR ×2 (08:38→21:00)
[2018-02-04] MEDS: NIFEdipine (XL) 90 MG TAB PO (08:39)
[2018-02-04] MEDS: VALSARTAN 160 MG TAB PO ×2 (08:39→22:05)
[2018-02-04] MEDS: CLOPIDOGREL 75 MG TAB PO (08:39)
[2018-02-04] MEDS: MULTIVIT/CA CARB/B CMPLX/FA TAB PO (08:40)
[2018-02-04] MEDS: MINOXIDIL 2.5 MG TAB PO ×2 (08:49→22:06)
[2018-02-04 12:01] LABS: HEPATITIS B SURFACE ANTIGEN NEGATIVE (NEGATIVE)
[2018-02-04] MEDS: VANCOMYCIN 1 GM 250 ML IVPB ×2 (12:14→16:06)
[2018-02-04] MEDS: HEPARIN 1000 UNITS/ML 10 ML INJ CATHETER (15:56)
[2018-02-04] MEDS: EPOETIN 10000 UNITS/1 ML INJ (ESRD) SC (17:10)
[2018-02-04] MEDS: SOD FERRIC GLUC COMPLX 125 MG in SOD CHLORIDE 0.9% 100 ML IVPB (19:05)
[2018-02-05 05:51] LABS: ADD MAN DIFF? NO
[2018-02-05 05:58] LABS: BASOPHIL # 0.1 10^3/ul (0.0-0.1); BASOPHILS % 0.9 % (0.0-2.0); EOSINOPHILS # 0.4 10^3/ul (0.0-0.5); HEMATOCRIT 26.2 % (42.0-52.0); HEMOGLOBIN 8.5 g/dl (14.0-18.0); LYMPHOCYTES % 23.1 % (15.0-51.0); MEAN CORPUSCULAR HEMOGLOBIN 28.5 pg (29.0-33.0); MEAN CORPUSCULAR HGB CONC 32.4 g/dl (32.0-37.0); MEAN CORPUSCULAR VOLUME 87.9 fl (82.0-101.0); MEAN PLATELET VOLUME 8.6 fl (7.4-10.4); MONOCYTE # 0.8 10^3/ul (0.3-0.9); MONOCYTES % 8.9 % (0.0-11.0); NEUTROPHIL # 5.5 10^3/ul (1.6-7.5); NEUTROPHILS % 62.6 % (39.0-77.0); PLATELET COUNT 331 10^3/UL (140-415); RED BLOOD COUNT 2.98 10^6/ul (4.70-6.10); RED CELL DISTRIBUTION WIDTH 17.2 % (11.5-14.5)
[2018-02-05 05:58] LABS: WHITE BLOOD COUNT 8.7 10^3/ul (4.8-10.8)
[2018-02-05] MEDS: PIPER-TAZO 2.25 GM (PMX) 50 ML IVPB ×3 (06:17→21:20)
[2018-02-05 06:18] LABS: ALBUMIN 2.6 g/dl (3.3-4.9); ANION GAP 10 (8-16); BLOOD UREA NITROGEN 35 mg/dl (7-20); CALCIUM 7.9 mg/dl (8.4-10.2); CARBON DIOXIDE 29 mmol/L (21-31); CHLORIDE 101 mmol/L (97-110); CREATININE 4.87 mg/dl (0.61-1.24); GLUCOSE 127 mg/dl (70-220); POTASSIUM 4.1 mmol/L (3.5-5.1); SODIUM 136 mmol/L (135-144)
[2018-02-05] MEDS: PANTOPRAZOLE (EC) 40 MG TAB PO (06:27)
[2018-02-05] MEDS: INSULIN ASPART [NOVOLOG] 3 ML PEN SC ×4 (08:00→21:17)
[2018-02-05] MEDS: NIFEdipine (XL) 90 MG TAB PO (08:16)
[2018-02-05] MEDS: SEVELAMER CARBONATE 0.8 GM PKT PO ×3 (08:16→17:40)
[2018-02-05] MEDS: MULTIVIT/CA CARB/B CMPLX/FA TAB PO (08:16)
[2018-02-05] MEDS: MINOXIDIL 2.5 MG TAB PO ×2 (08:17→21:14)
[2018-02-05] MEDS: ASPIRIN 81 MG TAB PO (08:17)
[2018-02-05] MEDS: CLOPIDOGREL 75 MG TAB PO (08:17)
[2018-02-05] MEDS: VALSARTAN 160 MG TAB PO ×2 (08:17→21:14)
[2018-02-05] MEDS: SODIUM HYPOCHLORITE 1/40% 1L IRRIG IRR ×2 (08:18→21:00)
[2018-02-06] MEDS: PIPER-TAZO 2.25 GM (PMX) 50 ML IVPB (05:31)
[2018-02-06] MEDS: PANTOPRAZOLE (EC) 40 MG TAB PO (05:31)
[2018-02-06 06:45] LABS: ANION GAP 12 (8-16); BLOOD UREA NITROGEN 50 mg/dl (7-20); CALCIUM 7.8 mg/dl (8.4-10.2); CARBON DIOXIDE 28 mmol/L (21-31); CHLORIDE 101 mmol/L (97-110); CREATININE 6.56 mg/dl (0.61-1.24); GLUCOSE 147 mg/dl (70-220); POTASSIUM 3.9 mmol/L (3.5-5.1); SODIUM 137 mmol/L (135-144)
[2018-02-06] MEDS: CLOPIDOGREL 75 MG TAB PO (08:07)
[2018-02-06] MEDS: SEVELAMER CARBONATE 0.8 GM PKT PO ×3 (08:07→17:26)
[2018-02-06] MEDS: ASPIRIN 81 MG TAB PO (08:07)
[2018-02-06] MEDS: INSULIN ASPART [NOVOLOG] 3 ML PEN SC ×4 (08:09→20:46)
[2018-02-06] MEDS: MULTIVIT/CA CARB/B CMPLX/FA TAB PO (08:10)
[2018-02-06] MEDS: SODIUM HYPOCHLORITE 1/40% 1L IRRIG IRR ×2 (08:14→20:46)
[2018-02-06] MEDS: VALSARTAN 160 MG TAB PO ×2 (11:16→20:45)
[2018-02-06] MEDS: MINOXIDIL 2.5 MG TAB PO ×2 (11:16→20:45)
[2018-02-06] MEDS: NIFEdipine (XL) 90 MG TAB PO (11:17)
[2018-02-06] MEDS: HEPARIN 1000 UNITS/ML 10 ML INJ CATHETER (15:29)
[2018-02-06] MEDS: AMPICILLIN/SULB 3 GM/NS (PMX) 100 ML IVPB (16:23)
[2018-02-06] MEDS: EPOETIN 10000 UNITS/1 ML INJ (ESRD) SC (16:25)
[2018-02-07] MEDS: PANTOPRAZOLE (EC) 40 MG TAB PO (05:40)
[2018-02-07 08:00] LABS: HEMOGLOBIN A1C 5.5 % (0-5.9)
[2018-02-07] MEDS: AMPICILLIN/SULB 3 GM/NS (PMX) 100 ML IVPB (08:03)
[2018-02-07] MEDS: SEVELAMER CARBONATE 0.8 GM PKT PO ×3 (08:03→17:15)
[2018-02-07] MEDS: VALSARTAN 160 MG TAB PO (08:04)
[2018-02-07] MEDS: INSULIN ASPART [NOVOLOG] 3 ML PEN SC ×3 (08:04→17:15)
[2018-02-07] MEDS: CLOPIDOGREL 75 MG TAB PO (08:04)
[2018-02-07] MEDS: MULTIVIT/CA CARB/B CMPLX/FA TAB PO (08:05)
[2018-02-07] MEDS: MINOXIDIL 2.5 MG TAB PO (08:05)
[2018-02-07] MEDS: NIFEdipine (XL) 90 MG TAB PO (08:05)
[2018-02-07] MEDS: SODIUM HYPOCHLORITE 1/40% 1L IRRIG IRR (08:06)
[2018-02-07 08:10] LABS: ERYTHROCYTE SEDIMENTATION RATE 28 mm/Hr (0-20)
[2018-02-07] MEDS: ASPIRIN 81 MG TAB PO (09:02)
[2018-02-07] MEDS ORDERED: LIDOCAINE 1% (MPF) 5 ML VIAL SC (14:00)
[2018-02-07 15:01] LABS: MYELOPEROXIDASE ANTIBODY <1.0 AI; PROTEINASE-3 ANTIBODY <1.0 AI
[2018-02-08 13:33] LABS: ANCA SCREEN NEGATIVE (NEGATIVE)
== END 2018-02-07 20:35 | DRG 264 ==
LOC: MS3 22:45 → PP2 01-31 20:37 → E/R 20:12
PROC: 0KBW0ZZ Excision of Left Foot Muscle, Open Approach (ICD-10-PCS; principal; 2018-01-31 14:00)
PROC: 0QBM0ZX Excision of Left Tarsal, Open Approach, Diagnostic (ICD-10-PCS; 2018-01-31 14:00)
PROC: 0JBR0ZZ Excision of Left Foot Subcutaneous Tissue and Fascia, Open Approach (ICD-10-PCS; 2018-01-31 15:12)
PROC: 5A1D70Z Performance of Urinary Filtration, Intermittent, Less than 6 Hours Per Day (ICD-10-PCS; 2018-01-31 15:12)
PROC: 30243N1 Transfusion of Nonautologous Red Blood Cells into Central Vein, Percutaneous Approach (ICD-10-PCS; 2018-01-31 15:12)
PROC: 02HV33Z Insertion of Infusion Device into Superior Vena Cava, Percutaneous Approach (ICD-10-PCS; 2018-01-31 15:12)
DX: E11.52 Type 2 diabetes mellitus with diabetic peripheral angiopathy with gangrene (principal); N18.6 End stage renal disease; I12.0 Hypertensive chronic kidney disease with stage 5 chronic kidney disease or end stage renal disease; E46 Unspecified protein-calorie malnutrition; I96 Gangrene, not elsewhere classified; L03.116 Cellulitis of left lower limb; L02.612 Cutaneous abscess of left foot; M86.172 Other acute osteomyelitis, left ankle and foot; M86.672 Other chronic osteomyelitis, left ankle and foot; L97.429 Non-pressure chronic ulcer of left heel and midfoot with unspecified severity; L97.419 Non-pressure chronic ulcer of right heel and midfoot with unspecified severity; D63.8 Anemia in other chronic diseases classified elsewhere; E11.22 Type 2 diabetes mellitus with diabetic chronic kidney disease; E11.621 Type 2 diabetes mellitus with foot ulcer; E11.42 Type 2 diabetes mellitus with diabetic polyneuropathy; E11.69 Type 2 diabetes mellitus with other specified complication; E88.09 Other disorders of plasma-protein metabolism, not elsewhere classified; R19.7 Diarrhea, unspecified; B95.5 Unspecified streptococcus as the cause of diseases classified elsewhere; Z99.2 Dependence on renal dialysis; Z68.23 Body mass index [BMI] 23.0-23.9, adult; Z96.652 Presence of left artificial knee joint; Z87.891 Personal history of nicotine dependence; Z79.02 Long term (current) use of antithrombotics/antiplatelets
CPT/HCPCS: 36415; 36430; 36569; 71045; 73630; 73630-LT; 73718; 76937; 80048; 80053; 80061; 80069; 80202; 82270; 82728; 82962; 83036; 83540; 83605; 83735; 84100; 84443; 84484; 85014; 85018; 85025; 85610; 85651; 85730; 86021; 86850; 86900; 86901; 86920; 87040; 87070; 87075; 87102; 87116; 87340; 88304; 88311; 90935; 93005; 96374; 96375; 97162; 99285-25

== ENCOUNTER 2018-12-11 17:59 | Inpatient (IN) | payer OTHER, MEDICAID ==
[2018-12-11 21:21] LABS: WHITE BLOOD COUNT 27.5 10^3/ul (4.8-10.8)
[2018-12-11 21:21] LABS: ABNORMAL IP MESSAGE 1; HEMATOCRIT 33.9 % (42.0-52.0); HEMOGLOBIN 10.7 g/dl (14.0-18.0); MEAN CORPUSCULAR HEMOGLOBIN 31.6 pg (29.0-33.0); MEAN CORPUSCULAR HGB CONC 31.6 g/dl (32.0-37.0); MEAN PLATELET VOLUME 9.4 fl (7.4-10.4); PLATELET COUNT 352 10^3/UL (140-415); POSITIVE DIFF @See below; RED BLOOD COUNT 3.39 10^6/ul (4.70-6.10); RED CELL DISTRIBUTION WIDTH 15.9 % (11.5-14.5)
[2018-12-11] MEDS: PIPER-TAZO 3.375 GM IV (PMX) 100 ML IVPB (21:33)
[2018-12-11] MEDS: VANCOMYCIN 1 GM (PMX) 250 ML IVPB (21:35)
[2018-12-11 21:44] LABS: INR 1.32; PROTIME 16.5 Sec (11.9-14.9); PT RATIO 1.3
[2018-12-11 21:45] LABS: PARTIAL THROMBOPLASTIN TIME 43.9 Sec (23.0-35.0)
[2018-12-11 21:46] LABS: ALANINE AMINOTRANSFERASE 48 IU/L (13-69); ALBUMIN 3.7 g/dl (3.3-4.9); ALBUMIN/GLOBULIN RATIO 0.88; ALKALINE PHOSPHATASE 452 IU/L (42-121); ANION GAP 16 (5-13); ASPARTATE AMINO TRANSFERASE 58 IU/L (15-46); BLOOD UREA NITROGEN 72 mg/dl (7-20); CALCIUM 9.1 mg/dl (8.4-10.2); CARBON DIOXIDE 26 mmol/L (21-31); CHLORIDE 86 mmol/L (97-110); CREATININE 11.39 mg/dl (0.61-1.24); Estimated GFR 5 mL/min (>60); GLUCOSE 190 mg/dl (70-220); LIPASE 24 U/L (23-300); POTASSIUM 4.9 mmol/L (3.5-5.1); SODIUM 128 mmol/L (135-144); TOTAL PROTEIN 7.9 g/dl (6.1-8.1)
[2018-12-11 21:47] LABS: ADD MAN DIFF? YES
[2018-12-11 21:57] LABS: TROPONIN-I 0.045 ng/ml (0.000-0.120)
[2018-12-11 23:23] LABS: ANISOCYTOSIS 1+ (0-0); BAND NEUTROPHILS #M 1.9 10^3/ul (0.0-0.6); BAND NEUTROPHILS % (M) 7 % (0-4); EOSINOPHILS % (M) 2 % (0-7); GIANT THROMBO% (M) 1 % (0-0); LYMPHOCYTES #M 1.6 10^3/ul (0.8-2.9); LYMPHOCYTES % (M) 6 % (15-51); MONOCYTE #M 1.9 10^3/ul (0.3-0.9); MONOCYTES % (M) 7 % (0-11); PLATELET ESTIMATE NORMAL; POIKILOCYTOSIS 1+ (0-0); POLYCHROMASIA 3+ (0-0); SEGMENTED NEUTROPHILS (M) % 78 % (39-77); SMUDGE%M 2 % (0-0)
[2018-12-12] MEDS: SOD CHLORIDE 0.9% 1,000 ML IV ×3 (01:49→23:10)
[2018-12-12] MEDS ORDERED: ALBUTEROL/IPRATROPIUM (NEB) 3 ML AMP HHN (02:00)
[2018-12-12] MEDS ORDERED: NACL 0.9% 3 ML SYG IV (02:00)
[2018-12-12] MEDS ORDERED: PIPER-TAZO 3.375 GM IV (PMX) 100 ML IVPB (02:00)
[2018-12-12] MEDS ORDERED: VANCOMYCIN IV PER PHARMACY XX (02:00)
[2018-12-12] MEDS ORDERED: ONDANSETRON 4 MG INJ IV (02:00)
[2018-12-12] MEDS: HYDROCODONE/APAP (5/325) TAB PO ×3 (02:29→23:16)
[2018-12-12 02:59] LABS: LACTIC ACID 1.1 mmol/L (0.5-2.0)
[2018-12-12 05:39] LABS: ADD MAN DIFF? NO
[2018-12-12 05:42] LABS: WHITE BLOOD COUNT 25.8 10^3/ul (4.8-10.8)
[2018-12-12 05:42] LABS: ABNORMAL IP MESSAGE 1; BASOPHIL # 0.1 10^3/ul (0.0-0.1); BASOPHILS % 0.5 % (0.0-2.0); EOSINOPHILS # 0.2 10^3/ul (0.0-0.5); EOSINOPHILS % 0.7 % (0.0-7.0); HEMATOCRIT 30.5 % (42.0-52.0); LYMPHOCYTES # 1.2 10^3/ul (0.8-2.9); LYMPHOCYTES % 4.6 % (15.0-51.0); MEAN CORPUSCULAR HEMOGLOBIN 32.4 pg (29.0-33.0); MEAN CORPUSCULAR HGB CONC 32.8 g/dl (32.0-37.0); MEAN CORPUSCULAR VOLUME 98.7 fl (82.0-101.0); MEAN PLATELET VOLUME 9.3 fl (7.4-10.4); MONOCYTE # 2.3 10^3/ul (0.3-0.9); MONOCYTES % 9.1 % (0.0-11.0); NEUTROPHIL # 21.7 10^3/ul (1.6-7.5); NEUTROPHILS % 84.1 % (39.0-77.0); PLATELET COUNT 331 10^3/UL (140-415); POSITIVE DIFF @See below; RED BLOOD COUNT 3.09 10^6/ul (4.70-6.10); RED CELL DISTRIBUTION WIDTH 15.8 % (11.5-14.5)
[2018-12-12] MEDS: PIPER-TAZO 2.25 GM (PMX) 50 ML IVPB ×3 (06:18→23:15)
[2018-12-12 06:23] LABS: ALANINE AMINOTRANSFERASE 45 IU/L (13-69); ALBUMIN 3.1 g/dl (3.3-4.9); ALBUMIN/GLOBULIN RATIO 0.88; ALKALINE PHOSPHATASE 364 IU/L (42-121); ANION GAP 16 (5-13); ASPARTATE AMINO TRANSFERASE 48 IU/L (15-46); BLOOD UREA NITROGEN 76 mg/dl (7-20); CALCIUM 8.6 mg/dl (8.4-10.2); CARBON DIOXIDE 24 mmol/L (21-31); CHLORIDE 90 mmol/L (97-110); CREATININE 11.51 mg/dl (0.61-1.24); Estimated GFR 5 mL/min (>60); GLUCOSE 145 mg/dl (70-220); MAGNESIUM 2.3 mg/dl (1.7-2.5); POTASSIUM 4.4 mmol/L (3.5-5.1); SODIUM 130 mmol/L (135-144); TOTAL PROTEIN 6.6 g/dl (6.1-8.1)
[2018-12-12] MEDS: PANTOPRAZOLE (EC) 40 MG TAB PO (07:29)
[2018-12-12] MEDS: SEVELAMER CARBONATE 0.8 GM PKT PO ×3 (07:52→17:35)
[2018-12-12] MEDS: VANCOMYCIN 500 MG (PMX) 100 ML IVPB (09:00)
[2018-12-12] MEDS: NIFEdipine (XL) 90 MG TAB PO (09:03)
[2018-12-12] MEDS: ASCORBIC ACID 500 MG TAB PO (09:03)
[2018-12-12] MEDS: MIDODRINE 5 MG TAB PO (09:03)
[2018-12-12] MEDS: MULTIVIT/CA CARB/B CMPLX/FA TAB PO (09:03)
[2018-12-12] MEDS: HEPARIN 5,000 UNIT/1 ML VIAL SC ×2 (09:43→21:17)
[2018-12-12] MEDS: CLOPIDOGREL 75 MG TAB PO (09:43)
[2018-12-12 17:11] LABS: HEPATITIS B SURFACE ANTIGEN NEGATIVE (NEGATIVE)
[2018-12-12] MEDS ORDERED: GLUCAGON 1 MG INJ IM (17:30)
[2018-12-12] MEDS ORDERED: DEXTROSE 50% 50 ML SYRINGE IV ×2 (17:30)
[2018-12-12] MEDS ORDERED: GLUCOSE GEL 15 GRAM TUBE BUCCAL (17:30)
[2018-12-12] MEDS ORDERED: GLUCOSE GEL 15 GRAM TUBE PO ×2 (17:30)
[2018-12-12] MEDS: INSULIN ASPART [NOVOLOG] 3 ML PEN SC ×2 (18:05→20:38)
[2018-12-12 18:11] LABS: HEMOGLOBIN A1C 6.2 % (0-5.9)
[2018-12-13] MEDS: ACCU-CHEK XX (02:00)
[2018-12-13] MEDS: PANTOPRAZOLE (EC) 40 MG TAB PO (06:02)
[2018-12-13] MEDS: PIPER-TAZO 2.25 GM (PMX) 50 ML IVPB ×3 (06:02→21:31)
[2018-12-13 07:38] LABS: ADD MAN DIFF? NO
[2018-12-13 07:46] LABS: WHITE BLOOD COUNT 23.8 10^3/ul (4.8-10.8)
[2018-12-13 07:46] LABS: ABNORMAL IP MESSAGE 1; BASOPHIL # 0.1 10^3/ul (0.0-0.1); BASOPHILS % 0.3 % (0.0-2.0); EOSINOPHILS # 0.1 10^3/ul (0.0-0.5); EOSINOPHILS % 0.3 % (0.0-7.0); HEMATOCRIT 30.9 % (42.0-52.0); HEMOGLOBIN 9.9 g/dl (14.0-18.0); LYMPHOCYTES # 0.9 10^3/ul (0.8-2.9); LYMPHOCYTES % 3.6 % (15.0-51.0); MEAN PLATELET VOLUME 9.3 fl (7.4-10.4); MONOCYTE # 1.5 10^3/ul (0.3-0.9); MONOCYTES % 6.2 % (0.0-11.0); NEUTROPHILS % 88.4 % (39.0-77.0); PLATELET COUNT 336 10^3/UL (140-415); POSITIVE DIFF @See below; RED BLOOD COUNT 3.09 10^6/ul (4.70-6.10); RED CELL DISTRIBUTION WIDTH 15.7 % (11.5-14.5)
[2018-12-13 08:04] LABS: ANION GAP 14 (5-13); BLOOD UREA NITROGEN 48 mg/dl (7-20); CALCIUM 7.9 mg/dl (8.4-10.2); CARBON DIOXIDE 25 mmol/L (21-31); CHLORIDE 93 mmol/L (97-110); CREATININE 7.21 mg/dl (0.61-1.24); Estimated GFR 8 mL/min (>60); GLUCOSE 184 mg/dl (70-220); MAGNESIUM 2.2 mg/dl (1.7-2.5); PHOSPHORUS 4.8 mg/dl (2.5-4.9); POTASSIUM 4.6 mmol/L (3.5-5.1); SODIUM 132 mmol/L (135-144)
[2018-12-13] MEDS: SEVELAMER CARBONATE 0.8 GM PKT PO ×3 (08:14→17:35)
[2018-12-13] MEDS: INSULIN ASPART [NOVOLOG] 3 ML PEN SC ×4 (08:17→20:55)
[2018-12-13] MEDS: SOD CHLORIDE 0.9% 1,000 ML IV ×2 (08:17→17:38)
[2018-12-13] MEDS: CLOPIDOGREL 75 MG TAB PO (08:59)
[2018-12-13] MEDS: MULTIVIT/CA CARB/B CMPLX/FA TAB PO (08:59)
[2018-12-13] MEDS: ASCORBIC ACID 500 MG TAB PO (08:59)
[2018-12-13] MEDS: MIDODRINE 5 MG TAB PO ×3 (08:59→20:59)
[2018-12-13] MEDS: NIFEdipine (XL) 90 MG TAB PO (09:00)
[2018-12-13] MEDS: HEPARIN 5,000 UNIT/1 ML VIAL SC ×2 (09:00→20:56)
[2018-12-13 10:57] LABS: IRON 27 ug/dl (35-150)
[2018-12-13] MEDS ORDERED: LIDOCAINE 1% (MPF) 5 ML VIAL SC (11:00)
[2018-12-13 11:06] LABS: % IRON SATURATION 22 % SAT (22-52); TOTAL IRON BINDING CAPACITY 125 ug/dl (241-421)
[2018-12-13] MEDS: HYDROCODONE/APAP (5/325) TAB PO (20:59)
[2018-12-13 21:12] LABS: C-REACTIVE PROTEIN 25.7 mg/dl (0.0-0.9)
[2018-12-13 21:33] LABS: ERYTHROCYTE SEDIMENTATION RATE 128 mm/Hr (0-20)
[2018-12-14] MEDS: EPOETIN ALFA-EPBX (ESRD) 10,000 UNIT/ML VIAL SC (00:36)
[2018-12-14] MEDS: ACCU-CHEK XX (02:18)
[2018-12-14] MEDS: SOD CHLORIDE 0.9% 1,000 ML IV ×3 (05:29→22:55)
[2018-12-14] MEDS: PIPER-TAZO 2.25 GM (PMX) 50 ML IVPB ×2 (05:29→14:00)
[2018-12-14] MEDS: PANTOPRAZOLE (EC) 40 MG TAB PO (05:35)
[2018-12-14 06:20] LABS: ADD MAN DIFF? NO
[2018-12-14 06:23] LABS: BASOPHIL # 0.1 10^3/ul (0.0-0.1); BASOPHILS % 0.3 % (0.0-2.0); EOSINOPHILS # 0.3 10^3/ul (0.0-0.5); EOSINOPHILS % 1.6 % (0.0-7.0); HEMATOCRIT 30.1 % (42.0-52.0); HEMOGLOBIN 9.9 g/dl (14.0-18.0); LYMPHOCYTES # 1.6 10^3/ul (0.8-2.9); MEAN CORPUSCULAR HEMOGLOBIN 32.6 pg (29.0-33.0); MEAN CORPUSCULAR HGB CONC 32.9 g/dl (32.0-37.0); MEAN PLATELET VOLUME 9.1 fl (7.4-10.4); MONOCYTE # 1.2 10^3/ul (0.3-0.9); MONOCYTES % 5.9 % (0.0-11.0); NEUTROPHIL # 16.7 10^3/ul (1.6-7.5); NEUTROPHILS % 83.1 % (39.0-77.0); PLATELET COUNT 340 10^3/UL (140-415); RED BLOOD COUNT 3.04 10^6/ul (4.70-6.10); RED CELL DISTRIBUTION WIDTH 15.8 % (11.5-14.5)
[2018-12-14 06:23] LABS: WHITE BLOOD COUNT 20.1 10^3/ul (4.8-10.8)
[2018-12-14 07:03] LABS: ANION GAP 13 (5-13); BLOOD UREA NITROGEN 65 mg/dl (7-20); CALCIUM 7.8 mg/dl (8.4-10.2); CARBON DIOXIDE 23 mmol/L (21-31); CHLORIDE 95 mmol/L (97-110); CHOL/HDL RATIO 6.6 RATIO; CHOLESTEROL 93 mg/dl (100-200); CREATININE 8.26 mg/dl (0.61-1.24); Estimated GFR 7 mL/min (>60); GLUCOSE 116 mg/dl (70-220); HDL CHOLESTEROL 14 mg/dl (30-78); LDL CHOLESTEROL,CALCULATED 28 mg/dl; POTASSIUM 4.7 mmol/L (3.5-5.1); SODIUM 131 mmol/L (135-144); TRIGLYCERIDES 254 mg/dl (0-149)
[2018-12-14] MEDS: SEVELAMER CARBONATE 0.8 GM PKT PO ×3 (07:35→17:34)
[2018-12-14] MEDS: INSULIN ASPART [NOVOLOG] 3 ML PEN SC ×4 (08:00→20:28)
[2018-12-14] MEDS: MIDODRINE 5 MG TAB PO ×3 (08:30→20:21)
[2018-12-14] MEDS: CLOPIDOGREL 75 MG TAB PO (08:30)
[2018-12-14] MEDS: HEPARIN 5,000 UNIT/1 ML VIAL SC ×2 (08:31→20:24)
[2018-12-14] MEDS: MULTIVIT/CA CARB/B CMPLX/FA TAB PO (08:31)
[2018-12-14] MEDS: ASCORBIC ACID 500 MG TAB PO (08:31)
[2018-12-14] MEDS: DAKINS 0.0125%(1/40) 473 ML SOLUTION TP (09:00)
[2018-12-14] MEDS: HYDROmorphONE 1 MG/ML SYG IV (10:05)
[2018-12-14 12:07] LABS: C-REACTIVE PROTEIN 23.7 mg/dl (0.0-0.9)
[2018-12-14] MEDS ORDERED: MIDAZOLAM 1 MG/ML 2 ML INJ (12:51)
[2018-12-14 12:52] LABS: ERYTHROCYTE SEDIMENTATION RATE 127 mm/Hr (0-20)
[2018-12-14] MEDS ORDERED: TOBRAMYCIN 1.2 GM POWDER (12:56)
[2018-12-14] MEDS: POLYMYXIN/BACITRACIN 1L IRRIG (13:48)
[2018-12-14] MEDS: VANCOMYCIN 1 GM INJ (13:48)
[2018-12-14] MEDS ORDERED: LIDOCAINE 2% (SDV) 5 ML INJ (14:08)
[2018-12-14] MEDS ORDERED: ETOMIDATE 20 MG INJ (14:08)
[2018-12-14] MEDS ORDERED: CEFAZOLIN 1 GM INJ (14:08)
[2018-12-14] MEDS ORDERED: ONDANSETRON 4 MG INJ (14:09)
[2018-12-14] MEDS ORDERED: MEPERIDINE 25 MG INJ IV (14:30)
[2018-12-14] MEDS ORDERED: DIPHENHYDRAMINE 50 MG INJ IV (14:30)
[2018-12-14] MEDS ORDERED: ONDANSETRON 4 MG INJ IV (14:30)
[2018-12-14] MEDS ORDERED: HYDROmorphONE 1 MG/5 ML IV SYRINGE IV ×2 (14:30)
[2018-12-14] MEDS ORDERED: FENTAnyl 50 MCG/ML VIAL IV (14:30)
[2018-12-14] MEDS ORDERED: METOCLOPRAMIDE 10 MG INJ IV (14:30)
[2018-12-14] MEDS: BISACODYL (EC) 5 MG TAB PO (17:34)
[2018-12-14] MEDS: POLYETHYLENE GLYCOL 17 GM PACKET PO (17:34)
[2018-12-14] MEDS: ACETAMINOPHEN 325 MG TAB PO (19:11)
[2018-12-14] MEDS: HYDROCODONE/APAP (5/325) TAB PO (20:21)
[2018-12-15] MEDS: ACCU-CHEK XX (02:00)
[2018-12-15] MEDS: HYDROCODONE/APAP (5/325) TAB PO ×3 (05:50→20:38)
[2018-12-15] MEDS: PANTOPRAZOLE (EC) 40 MG TAB PO (05:50)
[2018-12-15 06:03] LABS: ADD MAN DIFF? NO
[2018-12-15 06:10] LABS: ABNORMAL IP MESSAGE 1; BASOPHIL # 0.1 10^3/ul (0.0-0.1); BASOPHILS % 0.3 % (0.0-2.0); EOSINOPHILS # 0.2 10^3/ul (0.0-0.5); EOSINOPHILS % 0.8 % (0.0-7.0); HEMATOCRIT 27.8 % (42.0-52.0); HEMOGLOBIN 8.8 g/dl (14.0-18.0); LYMPHOCYTES # 1.3 10^3/ul (0.8-2.9); LYMPHOCYTES % 5.4 % (15.0-51.0); MEAN CORPUSCULAR HGB CONC 31.7 g/dl (32.0-37.0); MEAN CORPUSCULAR VOLUME 97.9 fl (82.0-101.0); MONOCYTE # 1.8 10^3/ul (0.3-0.9); MONOCYTES % 7.7 % (0.0-11.0); NEUTROPHILS % 84.1 % (39.0-77.0); PLATELET COUNT 311 10^3/UL (140-415); POSITIVE DIFF @See below; RED BLOOD COUNT 2.84 10^6/ul (4.70-6.10); RED CELL DISTRIBUTION WIDTH 15.9 % (11.5-14.5)
[2018-12-15 06:10] LABS: WHITE BLOOD COUNT 23.8 10^3/ul (4.8-10.8)
[2018-12-15 06:37] LABS: ANION GAP 14 (5-13); BLOOD UREA NITROGEN 72 mg/dl (7-20); CALCIUM 7.6 mg/dl (8.4-10.2); CARBON DIOXIDE 19 mmol/L (21-31); CHLORIDE 99 mmol/L (97-110); CREATININE 9.06 mg/dl (0.61-1.24); Estimated GFR 6 mL/min (>60); GLUCOSE 133 mg/dl (70-220); SODIUM 132 mmol/L (135-144)
[2018-12-15 06:50] LABS: VANCOMYCIN,RANDOM 9.8 ug/ml
[2018-12-15] MEDS: INSULIN ASPART [NOVOLOG] 3 ML PEN SC ×4 (08:00→20:33)
[2018-12-15] MEDS: SEVELAMER CARBONATE 0.8 GM PKT PO ×3 (08:59→17:24)
[2018-12-15] MEDS: MIDODRINE 5 MG TAB PO ×3 (08:59→20:38)
[2018-12-15] MEDS: DAKINS 0.0125%(1/40) 473 ML SOLUTION TP (09:00)
[2018-12-15] MEDS: HEPARIN 5,000 UNIT/1 ML VIAL SC ×2 (09:01→20:41)
[2018-12-15] MEDS ORDERED: VANCOMYCIN 1 GM 250 ML IVPB (09:30)
[2018-12-15] MEDS ORDERED: ALBUMIN HUMAN 25% 100 ML IV (10:00)
[2018-12-15] MEDS: ALTEPLASE (CATHFLO) 2 MG INJ CATHETER (12:07)
[2018-12-15] MEDS: ASCORBIC ACID 500 MG TAB PO (12:36)
[2018-12-15] MEDS: CLOPIDOGREL 75 MG TAB PO (12:37)
[2018-12-15] MEDS: VANCOMYCIN 1 GM 250 ML IVPB (12:37)
[2018-12-15] MEDS: MULTIVIT/CA CARB/B CMPLX/FA TAB PO (12:37)
[2018-12-15] MEDS: SOD CHLORIDE 0.9% 1,000 ML IV ×2 (12:40→19:38)
[2018-12-15] MEDS ORDERED: BISACODYL (EC) 5 MG TAB PO (20:07)
[2018-12-15] MEDS ORDERED: POLYETHYLENE GLYCOL 17 GM PACKET (20:07)
[2018-12-15] MEDS: POLYETHYLENE GLYCOL 17 GM PACKET PO (20:36)
[2018-12-15] MEDS: BISACODYL (EC) 5 MG TAB PO (20:37)
[2018-12-16] MEDS: ACCU-CHEK XX (01:42)
[2018-12-16] MEDS: SOD CHLORIDE 0.9% 1,000 ML IV ×2 (01:55→17:22)
[2018-12-16] MEDS: HYDROCODONE/APAP (5/325) TAB PO ×3 (04:00→20:32)
[2018-12-16] MEDS: PANTOPRAZOLE (EC) 40 MG TAB PO (05:43)
[2018-12-16 06:10] LABS: ADD MAN DIFF? NO
[2018-12-16 06:15] LABS: BASOPHIL # 0.1 10^3/ul (0.0-0.1); BASOPHILS % 0.4 % (0.0-2.0); EOSINOPHILS # 0.4 10^3/ul (0.0-0.5); HEMATOCRIT 27.6 % (42.0-52.0); HEMOGLOBIN 8.8 g/dl (14.0-18.0); LYMPHOCYTES # 1.3 10^3/ul (0.8-2.9); LYMPHOCYTES % 6.7 % (15.0-51.0); MEAN CORPUSCULAR HEMOGLOBIN 31.8 pg (29.0-33.0); MEAN CORPUSCULAR HGB CONC 31.9 g/dl (32.0-37.0); MEAN CORPUSCULAR VOLUME 99.6 fl (82.0-101.0); MEAN PLATELET VOLUME 8.9 fl (7.4-10.4); MONOCYTE # 1.1 10^3/ul (0.3-0.9); MONOCYTES % 5.6 % (0.0-11.0); NEUTROPHIL # 15.7 10^3/ul (1.6-7.5); NEUTROPHILS % 82.7 % (39.0-77.0); PLATELET COUNT 347 10^3/UL (140-415); RED BLOOD COUNT 2.77 10^6/ul (4.70-6.10); RED CELL DISTRIBUTION WIDTH 15.9 % (11.5-14.5)
[2018-12-16 06:15] LABS: WHITE BLOOD COUNT 18.9 10^3/ul (4.8-10.8)
[2018-12-16 06:59] LABS: ANION GAP 11 (5-13); BLOOD UREA NITROGEN 46 mg/dl (7-20); CALCIUM 7.6 mg/dl (8.4-10.2); CARBON DIOXIDE 24 mmol/L (21-31); CHLORIDE 98 mmol/L (97-110); CREATININE 6.74 mg/dl (0.61-1.24); Estimated GFR 8 mL/min (>60); GLUCOSE 102 mg/dl (70-220); POTASSIUM 4.6 mmol/L (3.5-5.1); SODIUM 133 mmol/L (135-144)
[2018-12-16] MEDS: INSULIN ASPART [NOVOLOG] 3 ML PEN SC ×4 (08:00→20:30)
[2018-12-16] MEDS: MULTIVIT/CA CARB/B CMPLX/FA TAB PO (08:57)
[2018-12-16] MEDS: SEVELAMER CARBONATE 0.8 GM PKT PO ×3 (08:57→17:19)
[2018-12-16] MEDS: MIDODRINE 5 MG TAB PO ×3 (08:58→20:32)
[2018-12-16] MEDS: CLOPIDOGREL 75 MG TAB PO (08:58)
[2018-12-16] MEDS: HEPARIN 5,000 UNIT/1 ML VIAL SC ×2 (08:58→20:32)
[2018-12-16] MEDS: ASCORBIC ACID 500 MG TAB PO (08:58)
[2018-12-16] MEDS: DAKINS 0.0125%(1/40) 473 ML SOLUTION TP (09:00)
[2018-12-16] MEDS: EPOETIN ALFA-EPBX (ESRD) 10,000 UNIT/ML VIAL SC (17:23)
[2018-12-16 21:00] LABS: C-REACTIVE PROTEIN 24.1 mg/dl (0.0-0.9)
[2018-12-16 21:05] LABS: ERYTHROCYTE SEDIMENTATION RATE 117 mm/Hr (0-20)
[2018-12-17] MEDS: SOD CHLORIDE 0.9% 1,000 ML IV ×2 (01:38→05:31)
[2018-12-17] MEDS: ACCU-CHEK XX (02:00)
[2018-12-17] MEDS: PANTOPRAZOLE (EC) 40 MG TAB PO (05:31)
[2018-12-17 07:15] LABS: ADD MAN DIFF? NO
[2018-12-17 07:25] LABS: BASOPHIL # 0.1 10^3/ul (0.0-0.1); BASOPHILS % 0.5 % (0.0-2.0); EOSINOPHILS # 0.4 10^3/ul (0.0-0.5); EOSINOPHILS % 1.8 % (0.0-7.0); HEMATOCRIT 31.9 % (42.0-52.0); HEMOGLOBIN 9.8 g/dl (14.0-18.0); LYMPHOCYTES # 1.5 10^3/ul (0.8-2.9); LYMPHOCYTES % 7.3 % (15.0-51.0); MEAN CORPUSCULAR HEMOGLOBIN 31.4 pg (29.0-33.0); MEAN CORPUSCULAR HGB CONC 30.7 g/dl (32.0-37.0); MEAN CORPUSCULAR VOLUME 102.2 fl (82.0-101.0); MEAN PLATELET VOLUME 8.9 fl (7.4-10.4); MONOCYTE # 1.1 10^3/ul (0.3-0.9); MONOCYTES % 5.3 % (0.0-11.0); NEUTROPHIL # 16.2 10^3/ul (1.6-7.5); NEUTROPHILS % 82.1 % (39.0-77.0); PLATELET COUNT 409 10^3/UL (140-415); RED BLOOD COUNT 3.12 10^6/ul (4.70-6.10); RED CELL DISTRIBUTION WIDTH 16.5 % (11.5-14.5)
[2018-12-17 07:25] LABS: WHITE BLOOD COUNT 19.8 10^3/ul (4.8-10.8)
[2018-12-17 07:42] LABS: ANION GAP 13 (5-13); BLOOD UREA NITROGEN 55 mg/dl (7-20); CALCIUM 7.8 mg/dl (8.4-10.2); CARBON DIOXIDE 21 mmol/L (21-31); CHLORIDE 99 mmol/L (97-110); CREATININE 7.84 mg/dl (0.61-1.24); Estimated GFR 7 mL/min (>60); GLUCOSE 89 mg/dl (70-220); POTASSIUM 4.6 mmol/L (3.5-5.1); SODIUM 133 mmol/L (135-144)
[2018-12-17] MEDS: INSULIN ASPART [NOVOLOG] 3 ML PEN SC ×4 (08:00→20:47)
[2018-12-17] MEDS: DAKINS 0.0125%(1/40) 473 ML SOLUTION TP (09:00)
[2018-12-17] MEDS: ASCORBIC ACID 500 MG TAB PO (09:16)
[2018-12-17] MEDS: CLOPIDOGREL 75 MG TAB PO (09:16)
[2018-12-17] MEDS: MIDODRINE 5 MG TAB PO ×3 (09:17→20:55)
[2018-12-17] MEDS: SEVELAMER CARBONATE 0.8 GM PKT PO ×3 (09:17→18:03)
[2018-12-17] MEDS: HYDROCODONE/APAP (5/325) TAB PO (09:18)
[2018-12-17] MEDS: HEPARIN 5,000 UNIT/1 ML VIAL SC ×2 (09:18→20:56)
[2018-12-17] MEDS: MULTIVIT/CA CARB/B CMPLX/FA TAB PO (09:20)
[2018-12-17] MEDS: HEPARIN 1000 UNITS/ML 10 ML INJ CATHETER (19:35)
[2018-12-18 13:43] LABS: PROCALCITONIN 15.63 ng/mL (<0.10)
== END 2018-12-17 21:17 | disposition home health service (06) | DRG 853 ==
LOC: E/R 17:59 → PP2 23:19
PROC: 0Y6Y0Z0 Detachment at Left 5th Toe, Complete, Open Approach (ICD-10-PCS; principal; 2018-12-14 12:30)
PROC: 0KBW0ZZ Excision of Left Foot Muscle, Open Approach (ICD-10-PCS; 2018-12-14 12:30)
PROC: 0LBW0ZZ Excision of Left Foot Tendon, Open Approach (ICD-10-PCS; 2018-12-14 12:30)
PROC: 0JBR0ZZ Excision of Left Foot Subcutaneous Tissue and Fascia, Open Approach (ICD-10-PCS; 2018-12-14 12:30)
PROC: 0YHN0YZ Insertion of Other Device into Left Foot, Open Approach (ICD-10-PCS; 2018-12-14 12:30)
PROC: 5A1D70Z Performance of Urinary Filtration, Intermittent, Less than 6 Hours Per Day (ICD-10-PCS; 2018-12-14 12:51)
DX: A41.02 Sepsis due to Methicillin resistant Staphylococcus aureus (principal); N18.6 End stage renal disease; E11.52 Type 2 diabetes mellitus with diabetic peripheral angiopathy with gangrene; I12.0 Hypertensive chronic kidney disease with stage 5 chronic kidney disease or end stage renal disease; E87.1 Hypo-osmolality and hyponatremia; L97.429 Non-pressure chronic ulcer of left heel and midfoot with unspecified severity; M86.272 Subacute osteomyelitis, left ankle and foot; R65.20 Severe sepsis without septic shock; E11.22 Type 2 diabetes mellitus with diabetic chronic kidney disease; E11.40 Type 2 diabetes mellitus with diabetic neuropathy, unspecified; E11.621 Type 2 diabetes mellitus with foot ulcer; D63.1 Anemia in chronic kidney disease; L97.529 Non-pressure chronic ulcer of other part of left foot with unspecified severity; E11.610 Type 2 diabetes mellitus with diabetic neuropathic arthropathy; E11.42 Type 2 diabetes mellitus with diabetic polyneuropathy; I95.1 Orthostatic hypotension; Z99.2 Dependence on renal dialysis
CPT/HCPCS: 36415; 71045; 73030; 73630-LT; 73718; 73721; 80048; 80053; 80061; 80202; 82728; 82962; 83036; 83540; 83605; 83690; 83735; 84100; 84145; 84484; 85025; 85610; 85651; 85730; 86140; 87040-91; 87070; 87340; 88305; 88311; 90935; 93005; 93922; 96365; 96366; 96375; 97162; 99285-25